=== PATIENT | male | born 1955 | race Caucasian/White ===

== ENCOUNTER 2017-05-16 22:03 | Inpatient (IN) | payer MEDICARE, OTHER ==
[~2017-05-16] VITALS: Ht 177.8 cm; Wt 93.4 kg
[2017-05-16] MEDS: IPRATROPIUM/ALBUTEROL 0.5-3(2.5)MG/3ML NEB HHN SCH (05:00)
[~2017-05-16 22:03] MED LIST: ALBU2.5V13 NEB; ALBU2SYR PO; ASCO-316 PO; ASPI-986 PO; BUDE6HFA INH; CLOP75TA16 PO; CLOP75TA33 PO; IPRA4AER IH; LISI10TA5 PO; LISI2.5T47 PO; LORA10TA7 PO; MONT10TA21 PO; NASA NS; ZOLP5TAB8 PO
[2017-05-16] MEDS ORDERED: IPRATROPIUM BROMIDE (0.02%) 0.5MG/2.5ML NEB HHN STA (22:10)
[2017-05-16] MEDS ORDERED: ALBUTEROL (0.083%) 2.5MG/3ML NEB HHN STA (22:10)
[2017-05-16] MEDS ORDERED: METHYLPREDNISOLONE SOD SUCC 125 MG/2 ML VIAL IV STA (22:10)
[2017-05-16] MEDS ORDERED: MAGNESIUM 2 G PREMIX 50 ML IV ONE (22:15)
[2017-05-16 22:56] LABS: TROPONIN I < 0.02 ng/mL (0.00-0.04)
[2017-05-16 22:58] LABS: HEMATOCRIT. 48.6 % (42.0-52.0); HEMOGLOBIN. 15.8 g/dL (14.0-18.0); MEAN CORPUSCULAR HEMOGLOBIN 28.3 pg (28.0-32.0); MEAN CORPUSCULAR VOLUME 87.3 fL (80.0-94.0); MEAN PLATELET VOLUME 8.7 fl (7.4-10.4); PLATELET 188 x1000/uL (130-400); RED BLOOD CELL COUNT 5.57 mill/uL (4.7-6.1); RED CELL DISTRIBUTION WIDTH 14.1 % (11.6-14.6)
[2017-05-16 23:00] LABS: CHLORIDE 97 mEq/L (98-107)
[2017-05-16] MEDS ORDERED: LEVOFLOXACIN 750MG PREMIX 150 ML IV ONE (23:00)
[2017-05-16 23:04] LABS: CARBON DIOXIDE 39 mEq/L (21-32)
[2017-05-16 23:04] LABS: INR 1.1; PROTHROMBIN TIME 11.4 sec (9.4-11.6)
[2017-05-16 23:12] LABS: PLATELET ESTIMATE NORMAL
[2017-05-16] MEDS ORDERED: MAGNESIUM/ALUMINUM HYDROXIDE/SIMETHICONE 30ML UDC PO PRN (23:15)
[2017-05-16] MEDS ORDERED: IPRATROPIUM/ALBUTEROL 0.5-3(2.5)MG/3ML NEB INH PRN (23:15)
[2017-05-16] MEDS ORDERED: ACETAMINOPHEN 325MG TABLET PO PRN (23:15)
[2017-05-16] MEDS ORDERED: ONDANSETRON HCL 4MG/2ML VIAL IV PRN (23:15)
[2017-05-16] MEDS ORDERED: DOCUSATE SODIUM 100MG CAPSULE PO PRN (23:15)
[2017-05-16] MEDS ORDERED: NA PHOS,M-B/NA PHOS,DI-BA ENEMA 118ML PR PRN (23:15)
[2017-05-16] MEDS ORDERED: ZOLPIDEM TARTRATE 5MG TABLET PO PRN (23:15)
[2017-05-16] MEDS ORDERED: TRAMADOL 50MG TABLET PO PRN (23:15)
[2017-05-16 23:57] LABS: ETHANOL BLOOD < 10 mg/dL; HDL CHOLESTEROL 75 mg/dL (40-59); LDL CHOLESTEROL 87 mg/dL (5-100)
[2017-05-17] VITALS (10 sets, daily range): BP systolic 145–169; BP diastolic 75–105
[2017-05-17] MEDS ORDERED: ALBUTEROL (0.083%) 2.5MG/3ML NEB HHN ONE (00:15)
[2017-05-17] MEDS ORDERED: SODIUM CHLORIDE 0.9% 1,000 ML IV ONE (00:15)
[2017-05-17] MEDS ORDERED: DILTIAZEM HCL 5MG/ML 5ML VIAL IV ONE (00:45)
[2017-05-17] MEDS ORDERED: DILTIAZEM HCL 120MG CAPSULE CD 24HR PO ONE (02:00)
[2017-05-17 04:21] LABS: CLARITY URINE CLEAR (CLEAR); COLOR URINE YELLOW (YELLOW); KETONES URINE 1+ (NEGATIVE); LEUKOCYTE ESTERASE URINE NEGATIVE (NEGATIVE); NITRITE URINE NEGATIVE (NEGATIVE); OCCULT BLOOD URINE NEGATIVE (NEGATIVE); PROTEIN URINE 2+ (NEGATIVE); SPECIFIC GRAVITY URINE 1.027 (1.005-1.030)
[2017-05-17 04:43] LABS: *AMPHETAMINES SCREEN URINE NEGATIVE (NEGATIVE); *BARBITURATES SCREEN URINE NEGATIVE (NEGATIVE); *BENZODIAZEPINES SCREEN URINE NEGATIVE (NEGATIVE); *COCAINE SCREEN URINE NEGATIVE (NEGATIVE); CANNABINOID URINE SCREEN PRESUMTIVE POSITIVE (NEGATIVE); METHADONE URINE SCREEN NEGATIVE (NEGATIVE); OPIATES URINE SCREEN PRESUMTIVE POSITIVE (NEGATIVE); PHENCYCLIDINE URINE SCREEN NEGATIVE (NEGATIVE)
[2017-05-17] MEDS: DIPHENHYDRAMINE 50MG/ML VIAL IV PRN ×2 (06:38→22:24)
[2017-05-17] MEDS: LORAZEPAM 0.5MG TABLET PO PRN ×2 (06:39→22:24)
[2017-05-17] MEDS: METHYLPREDNISOLONE SOD SUCC 125 MG/2 ML VIAL IV SCH ×2 (06:39→13:29)
[2017-05-17] MEDS ORDERED: POTASSIUM CHLORIDE INJ 20 MEQ in DEXT 5% WATER 100 ML IV ONE (07:00)
[2017-05-17 07:42] LABS: CREATINE KINASE MB FRACTION 5.7 ng/mL (0.5-3.6)
[2017-05-17] MEDS ORDERED: ENOXAPARIN 40MG/0.4ML SYR SUBCUT SCH (08:00)
[2017-05-17 09:05] LABS: TROPONIN I 0.48 ng/mL (0.00-0.04)
[2017-05-17] MEDS: CLOPIDOGREL 75MG TABLET PO SCH (09:13)
[2017-05-17] MEDS: FAMOTIDINE 20MG/2ML VIAL IV SCH ×2 (09:13→21:03)
[2017-05-17] MEDS: GUAIFENESIN/DM 600MG/30MG ER TAB 12HR PO SCH ×2 (09:13→21:03)
[2017-05-17] MEDS: ASPIRIN 325MG EC TABLET PO SCH (09:13)
[2017-05-17] MEDS: LISINOPRIL 20MG TABLET PO SCH ×2 (09:13→21:04)
[2017-05-17] MEDS: IPRATROPIUM/ALBUTEROL 0.5-3(2.5)MG/3ML NEB HHN SCH ×2 (09:48→20:57)
[2017-05-17] MEDS: LEVOFLOXACIN 500MG PREMIX 100 ML IV SCH (10:10)
[2017-05-17] MEDS: METHYLPREDNISOLONE SOD SUCC 40 MG/ML VIAL IV SCH ×2 (14:00→21:03)
[2017-05-17 14:50] LABS: BG BASE EXCESS 11.4 mmol/L (-2.0-2.0); BG CARBOXYHEMOGLOBIN 1.1 % (0.5-1.5); BG DEOXYHEMOGLOBIN 4.6 % (0.0-5.0); BG FRACTION INSPIRED OXYGEN 34; BG HCO3 ACT 40.9 mmol/L (22.0-26.0); BG METHEMOGLOBIN 0.3 % (0.0-1.5); BG OXYGEN SATURATION 95.3 % (92.0-98.5); BG PH 7.349 (7.350-7.450); BG PO2 76.4 mmHg (75.0-100.0); BG SAMPLE SITE RIGHT RADIAL; BG TOTAL HEMOGLOBIN 15.5 g/dL (12.0-18.0); BG VENT MODE NASAL CANNULA
[2017-05-17] MEDS: GUAIFENESIN 200MG/10ML SUGAR FREE UDC PO SCH ×3 (14:54→21:03)
[2017-05-17] MEDS: CLONIDINE 0.1MG TABLET PO PRN (15:55)
[2017-05-17] MEDS ORDERED: SODIUM CHLORIDE 10% FOR INH 15ML VIAL NEB INH NR (16:00)
[2017-05-17 16:02] LABS: T4 FREE 1.25 ng/dL (0.76-1.46)
[2017-05-17 16:43] LABS: CREATINE KINASE MB FRACTION 5.6 ng/mL (0.5-3.6)
[2017-05-17 16:50] LABS: TROPONIN I 0.51 ng/mL (0.00-0.04)
[2017-05-17] MEDS ORDERED: VANCOMYCIN 2,000 MG in DEXT 5% WATER 500 ML IV NR (18:00)
[2017-05-17] MEDS: BUDESONIDE 0.5MG/2ML NEB HHN SCH (20:56)
[2017-05-17] MEDS: TRAZODONE HCL 50MG TABLET PO PRN (21:04)
[2017-05-18] VITALS (12 sets, daily range): BP systolic 132–187; BP diastolic 70–116
[2017-05-18] MEDS: ACETYLCYSTEINE 200MG/ML 20% VIAL 4ML INH SCH ×2 (00:53→08:00)
[2017-05-18] MEDS: IPRATROPIUM/ALBUTEROL 0.5-3(2.5)MG/3ML NEB HHN SCH ×5 (00:53→16:24)
[2017-05-18] MEDS: VANCOMYCIN 1500MG in DEXTROSE 5% WATER 250ML IV SCH ×2 (03:01→17:15)
[2017-05-18] MEDS: GUAIFENESIN 200MG/10ML SUGAR FREE UDC PO SCH ×6 (03:02→21:02)
[2017-05-18] MEDS: METHYLPREDNISOLONE SOD SUCC 40 MG/ML VIAL IV SCH ×3 (05:05→21:02)
[2017-05-18] MEDS: LORAZEPAM 0.5MG TABLET PO PRN ×3 (06:28→22:58)
[2017-05-18 07:27] LABS: HEMOGLOBIN. 15.2 g/dL (14.0-18.0); MEAN CORPUSCULAR HEMOGLOBIN 28.4 pg (28.0-32.0); MEAN CORPUSCULAR VOLUME 87.7 fL (80.0-94.0); MEAN PLATELET VOLUME 9.1 fl (7.4-10.4); PLATELET 167 x1000/uL (130-400); RED BLOOD CELL COUNT 5.36 mill/uL (4.7-6.1); RED CELL DISTRIBUTION WIDTH 14.2 % (11.6-14.6)
[2017-05-18 07:37] LABS: CHLORIDE 96 mEq/L (98-107); CREATINE KINASE 57 IU/L (39-308)
[2017-05-18 07:39] LABS: CREATINE KINASE MB FRACTION 5.5 ng/mL (0.5-3.6); TROPONIN I 0.36 ng/mL (0.00-0.04)
[2017-05-18] MEDS: BUDESONIDE 0.5MG/2ML NEB HHN SCH ×2 (08:00→16:23)
[2017-05-18] MEDS ORDERED: DILTIAZEM HCL 5MG/ML 5ML VIAL IV SCH (08:45)
[2017-05-18] MEDS ORDERED: ENOXAPARIN 100MG/ML SYR SUBCUT SCH (09:15)
[2017-05-18] MEDS: LEVOFLOXACIN 500MG PREMIX 100 ML IV SCH (09:44)
[2017-05-18] MEDS: ASPIRIN 325MG EC TABLET PO SCH (09:45)
[2017-05-18] MEDS: CLOPIDOGREL 75MG TABLET PO SCH (09:45)
[2017-05-18] MEDS: FAMOTIDINE 20MG/2ML VIAL IV SCH ×2 (09:45→21:02)
[2017-05-18] MEDS: GUAIFENESIN/DM 600MG/30MG ER TAB 12HR PO SCH ×2 (09:45→21:02)
[2017-05-18 09:46] LABS: CARBON DIOXIDE 41 mEq/L (21-32)
[2017-05-18] MEDS: LISINOPRIL 20MG TABLET PO SCH ×2 (09:49→21:03)
[2017-05-18] MEDS ORDERED: DILTIAZEM HCL 125 MG in DEXT 5% WATER 100 ML IV SCH (10:00)
[2017-05-18] MEDS ORDERED: DILTIAZEM HCL 60MG TABLET PO SCH (12:00)
[2017-05-18] MEDS: DILTIAZEM HCL 60MG TABLET PO SCH ×3 (12:20→23:01)
[2017-05-18 12:47] LABS: PLATELET ESTIMATE NORMAL
[2017-05-18] MEDS: CLONIDINE 0.1MG TABLET PO PRN (16:27)
[2017-05-18] MEDS: RIVAROXABAN 20 MG TABLET PO SCH (17:15)
[2017-05-18] MEDS: DIGOXIN 250MCG TABLET PO SCH (17:17)
[2017-05-18] MEDS: ALBUTEROL (0.083%) 2.5MG/3ML NEB HHN SCH (20:18)
[2017-05-18] MEDS: TRAZODONE HCL 50MG TABLET PO PRN (21:02)
[2017-05-18] MEDS: DIPHENHYDRAMINE 50MG/ML VIAL IV PRN (22:58)
[2017-05-19] VITALS (12 sets, daily range): BP systolic 132–159; BP diastolic 69–105
[2017-05-19] MEDS: ALBUTEROL (0.083%) 2.5MG/3ML NEB HHN SCH ×5 (00:26→21:08)
[2017-05-19] MEDS: ACETYLCYSTEINE 200MG/ML 20% VIAL 4ML INH SCH ×3 (00:27→14:24)
[2017-05-19] MEDS: GUAIFENESIN 200MG/10ML SUGAR FREE UDC PO SCH ×4 (02:54→13:25)
[2017-05-19] MEDS: CLONIDINE 0.1MG TABLET PO PRN ×2 (03:00→22:53)
[2017-05-19] MEDS: VANCOMYCIN 1500MG in DEXTROSE 5% WATER 250ML IV SCH ×3 (03:01→21:21)
[2017-05-19] MEDS: DILTIAZEM HCL 60MG TABLET PO SCH ×2 (05:09→11:23)
[2017-05-19] MEDS: METHYLPREDNISOLONE SOD SUCC 40 MG/ML VIAL IV SCH ×3 (05:09→21:21)
[2017-05-19] MEDS: BUDESONIDE 0.5MG/2ML NEB HHN SCH ×2 (08:20→21:08)
[2017-05-19] MEDS: ASPIRIN 325MG EC TABLET PO SCH (08:39)
[2017-05-19] MEDS: GUAIFENESIN/DM 600MG/30MG ER TAB 12HR PO SCH ×2 (08:39→20:08)
[2017-05-19] MEDS: FAMOTIDINE 20MG/2ML VIAL IV SCH ×2 (08:39→20:08)
[2017-05-19] MEDS: LISINOPRIL 20MG TABLET PO SCH ×2 (08:39→20:08)
[2017-05-19] MEDS: LEVOFLOXACIN 500MG PREMIX 100 ML IV SCH (08:59)
[2017-05-19] MEDS: DIGOXIN 250MCG TABLET PO SCH (17:48)
[2017-05-19] MEDS: DILTIAZEM HCL 90MG TABLET PO SCH ×2 (17:48→23:43)
[2017-05-19] MEDS: FLUNISOLIDE XX SCH (17:48)
[2017-05-19] MEDS: RIVAROXABAN 20 MG TABLET PO SCH (17:48)
[2017-05-19] MEDS: ALBUTEROL (0.083%) 2.5MG/3ML NEB HHN PRN (17:59)
[2017-05-19] MEDS: ATORVASTATIN CALCIUM 20MG TABLET PO SCH (20:08)
[2017-05-19] MEDS: DIPHENHYDRAMINE 50MG/ML VIAL IV PRN (21:31)
[2017-05-19] MEDS: LORAZEPAM 0.5MG TABLET PO PRN (21:31)
[2017-05-19] MEDS: GUAIFENESIN 200MG/10ML SUGAR FREE UDC PO PRN (22:08)
[2017-05-19] MEDS: TRAZODONE HCL 50MG TABLET PO PRN (23:43)
[2017-05-20] VITALS (13 sets, daily range): BP systolic 97–176; BP diastolic 41–110
[2017-05-20] MEDS: ACETYLCYSTEINE 200MG/ML 20% VIAL 4ML INH SCH ×3 (00:19→16:22)
[2017-05-20] MEDS: ALBUTEROL (0.083%) 2.5MG/3ML NEB HHN PRN (00:19)
[2017-05-20] MEDS: ALBUTEROL (0.083%) 2.5MG/3ML NEB HHN SCH ×5 (04:02→20:08)
[2017-05-20] MEDS: METHYLPREDNISOLONE SOD SUCC 40 MG/ML VIAL IV SCH (05:23)
[2017-05-20] MEDS: DILTIAZEM HCL 90MG TABLET PO SCH ×4 (05:24→23:11)
[2017-05-20] MEDS: VANCOMYCIN 1500MG in DEXTROSE 5% WATER 250ML IV SCH ×2 (05:24→14:19)
[2017-05-20 06:25] LABS: HEMATOCRIT. 46.6 % (42.0-52.0); HEMOGLOBIN. 14.7 g/dL (14.0-18.0); MEAN CORPUSCULAR HEMOGLOBIN 27.8 pg (28.0-32.0); MEAN CORPUSCULAR VOLUME 88.3 fL (80.0-94.0); MEAN PLATELET VOLUME 9.2 fl (7.4-10.4); PLATELET 154 x1000/uL (130-400); RED BLOOD CELL COUNT 5.28 mill/uL (4.7-6.1); RED CELL DISTRIBUTION WIDTH 13.7 % (11.6-14.6)
[2017-05-20 06:50] LABS: CHLORIDE 95 mEq/L (98-107); VANCOMYCIN TROUGH 18.9 ug/mL (5.0-10.0)
[2017-05-20 07:39] LABS: PLATELET ESTIMATE NORMAL
[2017-05-20] MEDS: BUDESONIDE 0.5MG/2ML NEB HHN SCH ×2 (07:43→20:07)
[2017-05-20] MEDS: LISINOPRIL 20MG TABLET PO SCH ×2 (09:02→20:13)
[2017-05-20] MEDS: ASPIRIN 81MG EC TABLET PO SCH (09:02)
[2017-05-20] MEDS: FAMOTIDINE 20MG/2ML VIAL IV SCH ×2 (09:02→20:13)
[2017-05-20] MEDS: FLUNISOLIDE XX SCH ×2 (09:02→17:21)
[2017-05-20] MEDS: GUAIFENESIN/DM 600MG/30MG ER TAB 12HR PO SCH ×2 (09:02→20:13)
[2017-05-20 09:03] LABS: CARBON DIOXIDE 47 mEq/L (21-32)
[2017-05-20] MEDS ORDERED: LEVOFLOXACIN 750MG PREMIX 150 ML IV SCH (11:00)
[2017-05-20] MEDS ORDERED: SODIUM BICARBONATE 4% (2.4MEQ) 5ML VIAL IV ONE (13:53)
[2017-05-20] MEDS ORDERED: LIDOCAINE HCL 1% 20ML VIAL (Pyxis) INJ ONE (13:53)
[2017-05-20] MEDS ORDERED: CEFTRIAXONE 1 G PREMIX 50 ML IV SCH (15:00)
[2017-05-20] MEDS ORDERED: PREDNISONE 20MG TABLET PO SCH (17:00)
[2017-05-20] MEDS ORDERED: CEFTRIAXONE 2 G in DEXTROSE 5% WATER 50 ML IV SCH (17:00)
[2017-05-20] MEDS ORDERED: CEFTRIAXONE 2 G PREMIX 50 ML IV SCH (17:00)
[2017-05-20] MEDS: RIVAROXABAN 20 MG TABLET PO SCH (17:19)
[2017-05-20] MEDS: DIGOXIN 250MCG TABLET PO SCH (17:19)
[2017-05-20 19:16] LABS: D-DIMER < 0.19 mg/L FEU (<0.50); INR 1.5; PARTIAL THROMBOPLASTIN TIME 35.4 sec (23.4-31.0)
[2017-05-20] MEDS: ATORVASTATIN CALCIUM 20MG TABLET PO SCH (20:13)
[2017-05-20] MEDS: DIPHENHYDRAMINE 50MG/ML VIAL IV PRN (23:10)
[2017-05-20] MEDS: GUAIFENESIN 200MG/10ML SUGAR FREE UDC PO PRN (23:10)
[2017-05-20] MEDS: LORAZEPAM 0.5MG TABLET PO PRN (23:11)
[2017-05-20] MEDS: TRAZODONE HCL 50MG TABLET PO PRN (23:11)
[2017-05-20] MEDS: CLONIDINE 0.1MG TABLET PO PRN (23:13)
[2017-05-21] VITALS (61 sets, daily range): BP systolic 5–228; BP diastolic 18–228
[2017-05-21] MEDS: ALBUTEROL (0.083%) 2.5MG/3ML NEB HHN SCH ×3 (04:09→19:39)
[2017-05-21] MEDS: DIPHENHYDRAMINE 50MG/ML VIAL IV PRN (04:23)
[2017-05-21] MEDS: LORAZEPAM 0.5MG TABLET PO PRN (04:23)
[2017-05-21] MEDS: GUAIFENESIN 200MG/10ML SUGAR FREE UDC PO PRN (04:23)
[2017-05-21] MEDS: CLONIDINE 0.1MG TABLET PO PRN (04:24)
[2017-05-21 05:49] LABS: BG BASE EXCESS 24.5 mmol/L (-2.0-2.0); BG CARBOXYHEMOGLOBIN 1.2 % (0.5-1.5); BG DEOXYHEMOGLOBIN 12.9 % (0.0-5.0); BG FRACTION INSPIRED OXYGEN 50; BG HCO3 ACT 60.2 mmol/L (22.0-26.0); BG METHEMOGLOBIN 0.4 % (0.0-1.5); BG OXYGEN SATURATION 86.9 % (92.0-98.5); BG OXYHEMOGLOBIN 85.5 % (94.0-97.0); BG PH 7.267 (7.350-7.450); BG PO2 58.2 mmHg (75.0-100.0); BG SAMPLE SITE LEFT RADIAL; BG TOTAL HEMOGLOBIN 15.6 g/dL (12.0-18.0); BG VENT MODE MASK - VENTI
[2017-05-21] MEDS: DILTIAZEM HCL 90MG TABLET PO SCH ×3 (06:18→18:00)
[2017-05-21 07:25] LABS: HEMATOCRIT. 48.2 % (42.0-52.0); HEMOGLOBIN. 14.7 g/dL (14.0-18.0); MEAN CORPUSCULAR HEMOGLOBIN 27.2 pg (28.0-32.0); MEAN CORPUSCULAR VOLUME 89.1 fL (80.0-94.0); MEAN PLATELET VOLUME 9.2 fl (7.4-10.4); PLATELET 164 x1000/uL (130-400); RED CELL DISTRIBUTION WIDTH 13.9 % (11.6-14.6)
[2017-05-21] MEDS: LISINOPRIL 20MG TABLET PO SCH ×2 (07:59→21:00)
[2017-05-21 08:13] LABS: BG BASE EXCESS 25.2 mmol/L (-2.0-2.0); BG BILEVEL POS AIRWAY PRESSURE 18/5; BG CARBOXYHEMOGLOBIN 0.8 % (0.5-1.5); BG DEOXYHEMOGLOBIN 1.1 % (0.0-5.0); BG HCO3 ACT 63.1 mmol/L (22.0-26.0); BG METHEMOGLOBIN 0.5 % (0.0-1.5); BG OXYGEN SATURATION 98.9 % (92.0-98.5); BG OXYHEMOGLOBIN 97.6 % (94.0-97.0); BG PCO2 179.1 mmHg (35.0-45.0); BG PH 7.165 (7.350-7.450); BG SAMPLE SITE RIGHT RADIAL; BG TOTAL HEMOGLOBIN 14.6 g/dL (12.0-18.0); BG VENT MODE MASK - BIPAP; BG VENT RATE 18 set
[2017-05-21] MEDS: PROPOFOL 10MG/ML 100ML 100 ML IV PRN ×3 (08:30→18:06)
[2017-05-21 08:45] LABS: CHLORIDE 92 mEq/L (98-107)
[2017-05-21] MEDS: FLUNISOLIDE XX SCH ×2 (09:00→17:00)
[2017-05-21] MEDS ORDERED: LEVOFLOXACIN 500MG PREMIX 100 ML IV SCH ×2 (09:00→15:00)
[2017-05-21] MEDS: ASPIRIN 81MG EC TABLET PO SCH (09:00)
[2017-05-21] MEDS: GUAIFENESIN/DM 600MG/30MG ER TAB 12HR PO SCH ×2 (09:00→22:01)
[2017-05-21] MEDS ORDERED: ALBUMIN HUMAN 25GM/100ML (25%) IV NR (09:56)
[2017-05-21] MEDS ORDERED: SODIUM CHLORIDE 0.9% 1,000 ML IV SCH (10:00)
[2017-05-21] MEDS ORDERED: MEPERIDINE HCL/PF 25MG/ML CPJ IV PRN (10:00)
[2017-05-21 10:02] LABS: BG BASE EXCESS 13.1 mmol/L (-2.0-2.0); BG CARBOXYHEMOGLOBIN 0.5 % (0.5-1.5); BG DEOXYHEMOGLOBIN 1.2 % (0.0-5.0); BG HCO3 ACT 38.3 mmol/L (22.0-26.0); BG METHEMOGLOBIN 0.3 % (0.0-1.5); BG OXYGEN SATURATION 98.8 % (92.0-98.5); BG PCO2 49.6 mmHg (35.0-45.0); BG PH 7.506 (7.350-7.450); BG PO2 127.7 mmHg (75.0-100.0); BG SAMPLE SITE RIGHT RADIAL; BG TIDAL VOLUME(mL) 550 mL; BG TOTAL HEMOGLOBIN 15.1 g/dL (12.0-18.0); BG VENT MODE VENT - A/C; BG VENT RATE 18 set
[2017-05-21] MEDS ORDERED: PHENYLEPHRINE 10 MG in DEXT 5% WATER 249 ML IV PRN (10:30)
[2017-05-21] MEDS: NOREPINEPHRINE 32 MG in DEXT 5% WATER 468 ML IV PRN (10:30)
[2017-05-21] MEDS ORDERED: DOPAMINE 400MG IN DEXT 5% 250ML PREMIX IV ONE (11:23)
[2017-05-21] MEDS ORDERED: EPINEPHRINE 0.1MG/ML (1:10,000) 10ML SYR ONE (11:23)
[2017-05-21] MEDS ORDERED: AMIODARONE HCL 50MG/ML 3ML VIAL IV ONE (11:23)
[2017-05-21 11:29] LABS: HEMATOCRIT. 44.3 % (42.0-52.0); HEMOGLOBIN. 13.3 g/dL (14.0-18.0); MEAN CORPUSCULAR HEMOGLOBIN 26.9 pg (28.0-32.0); MEAN CORPUSCULAR VOLUME 89.4 fL (80.0-94.0); PLATELET 222 x1000/uL (130-400); RED BLOOD CELL COUNT 4.95 mill/uL (4.7-6.1); RED CELL DISTRIBUTION WIDTH 14.5 % (11.6-14.6)
[2017-05-21 11:37] LABS: INR 1.3; PARTIAL THROMBOPLASTIN TIME 25.6 sec (23.4-31.0); PROTHROMBIN TIME 13.3 sec (9.4-11.6)
[2017-05-21 12:09] LABS: CARBON DIOXIDE 44 mEq/L (21-32)
[2017-05-21 12:55] LABS: PLATELET ESTIMATE NORMAL
[2017-05-21] MEDS: FENTANYL CITRATE/PF 500 MCG in SODIUM CHLORIDE 0.9% 40 ML IV PRN ×3 (13:00→22:07)
[2017-05-21 13:10] LABS: AMYLASE 38 IU/L (25-115); CHLORIDE 91 mEq/L (98-107); CREATINE KINASE 34 IU/L (39-308); HDL CHOLESTEROL 62 mg/dL (40-59); LDL CHOLESTEROL 77 mg/dL (5-100); PHOSPHORUS 6.1 mg/dL (2.5-4.9); TROPONIN I 0.14 ng/mL (0.00-0.04)
[2017-05-21 13:13] LABS: BG BASE EXCESS 15.7 mmol/L (-2.0-2.0); BG CARBOXYHEMOGLOBIN 0.3 % (0.5-1.5); BG DEOXYHEMOGLOBIN 0.7 % (0.0-5.0); BG HCO3 ACT 41.8 mmol/L (22.0-26.0); BG METHEMOGLOBIN 0.6 % (0.0-1.5); BG OXYGEN SATURATION 99.3 % (92.0-98.5); BG OXYHEMOGLOBIN 98.4 % (94.0-97.0); BG PCO2 55.3 mmHg (35.0-45.0); BG PH 7.496 (7.350-7.450); BG PO2 268.9 mmHg (75.0-100.0); BG SAMPLE SITE A-LINE; BG TIDAL VOLUME(mL) 550 mL; BG TOTAL HEMOGLOBIN 14.8 g/dL (12.0-18.0); BG VENT MODE VENT - A/C; BG VENT RATE 18 set
[2017-05-21 13:26] LABS: CARBON DIOXIDE 40 mEq/L (21-32)
[2017-05-21] MEDS: BUDESONIDE 0.5MG/2ML NEB HHN SCH ×2 (14:03→19:40)
[2017-05-21] MEDS: ACETYLCYSTEINE 200MG/ML 20% VIAL 4ML INH SCH (14:03)
[2017-05-21] MEDS: FAMOTIDINE 20MG/2ML VIAL IV SCH ×2 (15:05→22:01)
[2017-05-21] MEDS: PANTOPRAZOLE SODIUM 40 MG/VIAL IV SCH (15:05)
[2017-05-21] MEDS: MIDAZOLAM HCL 50 MG in DEXTROSE 5% WATER 40 ML IV PRN (15:12)
[2017-05-21 15:39] LABS: PLATELET ESTIMATE NORMAL
[2017-05-21] MEDS ORDERED: DEXTROSE 50% WATER 50ML SYRINGE IV PRN (16:15)
[2017-05-21] MEDS: BLOOD SUGAR DIAGNOSTIC STRIP TEST SCH (18:00)
[2017-05-21] MEDS: DIGOXIN 250MCG TABLET PO SCH (18:00)
[2017-05-21] MEDS: CEFEPIME 2,000 MG in DEXT 5% WATER 100 ML IV SCH (18:08)
[2017-05-21] MEDS: RIVAROXABAN 20 MG TABLET PO SCH (18:16)
[2017-05-21] MEDS: INSULIN LISPRO 100 UNITS/ML SUBCUT SCH (18:24)
[2017-05-21 21:11] LABS: TROPONIN I 0.22 ng/mL (0.00-0.04)
[2017-05-21 21:13] LABS: CREATINE KINASE MB FRACTION 1.4 ng/mL (0.5-3.6)
[2017-05-21] MEDS ORDERED: SODIUM PHOS,M-BASIC-D-BASIC 10 MM in DEXT 5% WATER 246.6667 ML IV PRN (21:30)
[2017-05-21] MEDS ORDERED: KCL 20MEQ/100ML PREMIX 250 ML IV PRN ×2 (21:30→22:00)
[2017-05-21] MEDS ORDERED: KCL 20MEQ/100ML PREMIX 100 ML IV PRN ×4 (21:30→22:00)
[2017-05-21] MEDS ORDERED: CALCIUM GLUCONATE 1,000 MG in DEXT 5% WATER 90 ML IV PRN ×2 (21:30→22:00)
[2017-05-21] MEDS ORDERED: MAGNESIUM 2 G PREMIX 50 ML IV PRN (21:30)
[2017-05-21] MEDS: ATORVASTATIN CALCIUM 20MG TABLET PO SCH (22:01)
[2017-05-21] MEDS ORDERED: POTASSIUM CHLORIDE INJ 40 MEQ in DEXT 5% WATER 250 ML IV NR (23:30)
[2017-05-21 23:40] LABS: HEMATOCRIT. 44.3 % (42.0-52.0); HEMOGLOBIN. 13.8 g/dL (14.0-18.0); MEAN CORPUSCULAR HEMOGLOBIN 27.4 pg (28.0-32.0); MEAN PLATELET VOLUME 9.4 fl (7.4-10.4); PLATELET 204 x1000/uL (130-400); RED BLOOD CELL COUNT 5.03 mill/uL (4.7-6.1); RED CELL DISTRIBUTION WIDTH 13.7 % (11.6-14.6)
[2017-05-21 23:47] LABS: INR 1.3; PROTHROMBIN TIME 13.4 sec (9.4-11.6)
[2017-05-22] VITALS (82 sets, daily range): BP systolic 50–160; BP diastolic 34–110
[2017-05-22] MEDS: INSULIN LISPRO 100 UNITS/ML SUBCUT SCH ×4 (00:12→17:50)
[2017-05-22] MEDS: BLOOD SUGAR DIAGNOSTIC STRIP TEST SCH ×4 (00:14→17:50)
[2017-05-22 01:14] LABS: PHOSPHORUS 1.4 mg/dL (2.5-4.9)
[2017-05-22] MEDS: PROPOFOL 10MG/ML 100ML 100 ML IV PRN (01:14)
[2017-05-22] MEDS: ALBUTEROL (0.083%) 2.5MG/3ML NEB HHN SCH ×4 (01:49→20:13)
[2017-05-22] MEDS: MIDAZOLAM HCL 50 MG in DEXTROSE 5% WATER 40 ML IV PRN ×2 (01:59→17:14)
[2017-05-22] MEDS: FENTANYL CITRATE/PF 500 MCG in SODIUM CHLORIDE 0.9% 40 ML IV PRN ×3 (03:05→19:34)
[2017-05-22 03:22] LABS: PLATELET ESTIMATE NORMAL
[2017-05-22] MEDS ORDERED: DEXT IV NR (03:30)
[2017-05-22] MEDS ORDERED: WATER IV NR (03:30)
[2017-05-22] MEDS ORDERED: SODIUM PHOS M BASIC D BASIC IV NR (03:30)
[2017-05-22] MEDS: DILTIAZEM HCL 90MG TABLET PO SCH ×2 (06:00)
[2017-05-22] MEDS: CEFEPIME 2,000 MG in DEXT 5% WATER 100 ML IV SCH ×2 (06:23→17:54)
[2017-05-22 06:38] LABS: CREATINE KINASE MB FRACTION 1.6 ng/mL (0.5-3.6); TROPONIN I 0.18 ng/mL (0.00-0.04)
[2017-05-22] MEDS: ACETYLCYSTEINE 200MG/ML 20% VIAL 4ML INH SCH ×2 (08:40→14:45)
[2017-05-22] MEDS: BUDESONIDE 0.5MG/2ML NEB HHN SCH ×2 (08:40→20:13)
[2017-05-22 08:55] LABS: BG BASE EXCESS 8.8 mmol/L (-2.0-2.0); BG CARBOXYHEMOGLOBIN 0.5 % (0.5-1.5); BG DEOXYHEMOGLOBIN 0.5 % (0.0-5.0); BG FRACTION INSPIRED OXYGEN 45; BG HCO3 ACT 31.8 mmol/L (22.0-26.0); BG OXYGEN SATURATION 99.5 % (92.0-98.5); BG PCO2 38.1 mmHg (35.0-45.0); BG PO2 197.1 mmHg (75.0-100.0); BG SAMPLE SITE A-LINE; BG TIDAL VOLUME(mL) 550 mL; BG TOTAL HEMOGLOBIN 14.7 g/dL (12.0-18.0); BG VENT MODE VENT - A/C; BG VENT RATE 18 set
[2017-05-22] MEDS: FLUNISOLIDE XX SCH (09:00)
[2017-05-22] MEDS: LISINOPRIL 20MG TABLET PO SCH ×2 (09:00→21:00)
[2017-05-22] MEDS: PANTOPRAZOLE SODIUM 40 MG/VIAL IV SCH (09:16)
[2017-05-22] MEDS: SODIUM CHLORIDE 0.9% 1,000 ML IV SCH ×2 (09:18→21:12)
[2017-05-22] MEDS ORDERED: CLONIDINE 0.1MG TABLET NG PRN (09:44)
[2017-05-22] MEDS ORDERED: PROPOFOL 10MG/ML 100ML 100 ML IV PRN ×4 (10:00→21:31)
[2017-05-22] MEDS ORDERED: ACETAMINOPHEN 650MG/20.3ML UDC NG PRN (10:00)
[2017-05-22] MEDS ORDERED: POTASSIUM CHLORIDE INJ 40 MEQ in DEXT 5% WATER 250 ML IV NR (10:00)
[2017-05-22] MEDS: ASPIRIN 81MG TABLET GT SCH (10:11)
[2017-05-22] MEDS: GUAIFENESIN-DM 200MG-20MG/10ML UDC GT SCH ×2 (11:47→17:54)
[2017-05-22 12:33] LABS: HEMATOCRIT. 43.5 % (42.0-52.0); HEMOGLOBIN. 13.6 g/dL (14.0-18.0); MEAN CORPUSCULAR VOLUME 86.6 fL (80.0-94.0); MEAN PLATELET VOLUME 9.1 fl (7.4-10.4); PLATELET 193 x1000/uL (130-400); RED BLOOD CELL COUNT 5.02 mill/uL (4.7-6.1); RED CELL DISTRIBUTION WIDTH 13.7 % (11.6-14.6)
[2017-05-22 12:38] LABS: INR 1.3; PROTHROMBIN TIME 13.4 sec (9.4-11.6)
[2017-05-22 12:48] LABS: PHOSPHORUS 2.1 mg/dL (2.5-4.9)
[2017-05-22 13:50] LABS: PLATELET ESTIMATE NORMAL
[2017-05-22] MEDS ORDERED: MAGNESIUM 2 G PREMIX 50 ML IV NR (14:00)
[2017-05-22] MEDS: NOREPINEPHRINE 32 MG in DEXT 5% WATER 468 ML IV PRN (14:54)
[2017-05-22] MEDS: RIVAROXABAN 20 MG TABLET PO SCH (17:54)
[2017-05-22 20:24] LABS: CHLORIDE 96 mEq/L (98-107); HEMOGLOBIN. 14.3 g/dL (14.0-18.0); MEAN CORPUSCULAR HEMOGLOBIN 27.4 pg (28.0-32.0); MEAN CORPUSCULAR VOLUME 86.3 fL (80.0-94.0); MEAN PLATELET VOLUME 9.1 fl (7.4-10.4); PLATELET 177 x1000/uL (130-400); RED BLOOD CELL COUNT 5.21 mill/uL (4.7-6.1)
[2017-05-22 20:27] LABS: INR 1.1; PARTIAL THROMBOPLASTIN TIME 29.9 sec (23.4-31.0); PROTHROMBIN TIME 11.7 sec (9.4-11.6)
[2017-05-22 20:33] LABS: CARBON DIOXIDE 35 mEq/L (21-32); PHOSPHORUS 1.8 mg/dL (2.5-4.9)
[2017-05-22] MEDS: ATORVASTATIN CALCIUM 20MG TABLET GT SCH (21:12)
[2017-05-22 21:55] LABS: NUCLEATED RED BLOOD CELLS 1 /100 WBC
[2017-05-22 21:57] LABS: PLATELET ESTIMATE NORMAL
[2017-05-23] VITALS (116 sets, daily range): BP systolic 2–271; BP diastolic -5–198
[2017-05-23] MEDS: GUAIFENESIN-DM 200MG-20MG/10ML UDC GT SCH
[2017-05-23 00:56] LABS: HEMATOCRIT. 45.2 % (42.0-52.0); HEMOGLOBIN. 14.2 g/dL (14.0-18.0); MEAN CORPUSCULAR HEMOGLOBIN 27.3 pg (28.0-32.0); MEAN CORPUSCULAR VOLUME 86.7 fL (80.0-94.0); MEAN PLATELET VOLUME 9.3 fl (7.4-10.4); PLATELET 191 x1000/uL (130-400); RED BLOOD CELL COUNT 5.22 mill/uL (4.7-6.1); RED CELL DISTRIBUTION WIDTH 14.1 % (11.6-14.6)
[2017-05-23 01:01] LABS: INR 1.1; PARTIAL THROMBOPLASTIN TIME 29.6 sec (23.4-31.0); PROTHROMBIN TIME 11.4 sec (9.4-11.6)
[2017-05-23 01:09] LABS: CARBON DIOXIDE 35 mEq/L (21-32); CHLORIDE 96 mEq/L (98-107); PHOSPHORUS 2.2 mg/dL (2.5-4.9)
[2017-05-23] MEDS: ACETYLCYSTEINE 200MG/ML 20% VIAL 4ML INH SCH (02:05)
[2017-05-23] MEDS: ALBUTEROL (0.083%) 2.5MG/3ML NEB HHN SCH ×4 (02:05→20:20)
[2017-05-23] MEDS ORDERED: ATROPINE SULFATE 1MG/10ML SYR ONE (02:38)
[2017-05-23] MEDS ORDERED: AMIODARONE HCL 150 MG in DEXT 5% WATER 100 ML IV NR (03:00)
[2017-05-23] MEDS ORDERED: AMIODARONE HCL 900 MG in DEXT 5% WATER 482 ML IV PRN ×2 (03:00→04:00)
[2017-05-23] MEDS ORDERED: PHENYLEPHRINE 80 MG in DEXT 5% WATER 492 ML IV PRN (03:30)
[2017-05-23 03:39] LABS: BG BASE EXCESS -4.1 mmol/L (-2.0-2.0); BG CARBOXYHEMOGLOBIN 0.4 % (0.5-1.5); BG DEOXYHEMOGLOBIN 1.3 % (0.0-5.0); BG FRACTION INSPIRED OXYGEN 35; BG HCO3 ACT 24.8 mmol/L (22.0-26.0); BG METHEMOGLOBIN 0.3 % (0.0-1.5); BG OXYGEN SATURATION 98.7 % (92.0-98.5); BG PCO2 61.2 mmHg (35.0-45.0); BG PH 7.226 (7.350-7.450); BG PO2 156.4 mmHg (75.0-100.0); BG SAMPLE SITE A-LINE; BG TIDAL VOLUME(mL) 550 mL; BG TOTAL HEMOGLOBIN 15.8 g/dL (12.0-18.0); BG VENT MODE VENT - A/C; BG VENT RATE 16 set
[2017-05-23] MEDS ORDERED: WATER IV PRN (03:45)
[2017-05-23] MEDS ORDERED: DEXT 5% IV PRN (03:45)
[2017-05-23] MEDS ORDERED: PHENYLEPHRINE IV PRN (03:45)
[2017-05-23] MEDS: SODIUM CHLORIDE 0.9% 1,000 ML IV SCH ×3 (04:00→21:00)
[2017-05-23 04:27] LABS: HEMOGLOBIN. 14.7 g/dL (14.0-18.0); MEAN CORPUSCULAR HEMOGLOBIN 27.1 pg (28.0-32.0); MEAN CORPUSCULAR VOLUME 88.5 fL (80.0-94.0); MEAN PLATELET VOLUME 9.8 fl (7.4-10.4); PLATELET 203 x1000/uL (130-400); RED BLOOD CELL COUNT 5.42 mill/uL (4.7-6.1); RED CELL DISTRIBUTION WIDTH 14.6 % (11.6-14.6)
[2017-05-23 04:39] LABS: INR 1.2
[2017-05-23 04:45] LABS: PLATELET ESTIMATE NORMAL
[2017-05-23 04:51] LABS: CARBON DIOXIDE 29 mEq/L (21-32); CHLORIDE 92 mEq/L (98-107); PHOSPHORUS 5.4 mg/dL (2.5-4.9)
[2017-05-23] MEDS ORDERED: EPINEPHRINE 0.1MG/ML (1:10,000) 10ML SYR ONE (06:00)
[2017-05-23] MEDS: BLOOD SUGAR DIAGNOSTIC STRIP TEST SCH ×4 (06:00→18:31)
[2017-05-23] MEDS: INSULIN LISPRO 100 UNITS/ML SUBCUT SCH ×4 (06:00→18:00)
[2017-05-23] MEDS ORDERED: AMIODARONE HCL 50MG/ML 3ML VIAL IV ONE (06:00)
[2017-05-23] MEDS ORDERED: SODIUM BICARBONATE 7.5% 0.9 MEQ/ML 50ML SYR IV ONE (06:00)
[2017-05-23 08:17] LABS: HEMATOCRIT. 46.2 % (42.0-52.0); HEMOGLOBIN. 14.4 g/dL (14.0-18.0); MEAN CORPUSCULAR HEMOGLOBIN 27.2 pg (28.0-32.0); MEAN CORPUSCULAR VOLUME 87.2 fL (80.0-94.0); MEAN PLATELET VOLUME 9.7 fl (7.4-10.4); PLATELET 186 x1000/uL (130-400); RED CELL DISTRIBUTION WIDTH 14.3 % (11.6-14.6)
[2017-05-23] MEDS: LISINOPRIL 20MG TABLET PO SCH (09:00)
[2017-05-23] MEDS: ASPIRIN 81MG TABLET GT SCH ×2 (09:00→09:57)
[2017-05-23 09:02] LABS: INR 1.1; PARTIAL THROMBOPLASTIN TIME 28.8 sec (23.4-31.0); PROTHROMBIN TIME 11.6 sec (9.4-11.6)
[2017-05-23 09:04] LABS: CARBON DIOXIDE 31 mEq/L (21-32); CHLORIDE 95 mEq/L (98-107); PHOSPHORUS 3.8 mg/dL (2.5-4.9)
[2017-05-23] MEDS: FENTANYL CITRATE/PF 500 MCG in SODIUM CHLORIDE 0.9% 40 ML IV PRN (09:05)
[2017-05-23] MEDS: CEFEPIME 2,000 MG in DEXT 5% WATER 100 ML IV SCH ×2 (09:09→18:31)
[2017-05-23] MEDS: PANTOPRAZOLE SODIUM 40 MG/VIAL IV SCH (09:12)
[2017-05-23] MEDS ORDERED: SODIUM CHLORIDE 0.9% 500 ML IV ONE (09:15)
[2017-05-23 09:16] LABS: BG BASE EXCESS 4.3 mmol/L (-2.0-2.0); BG CARBOXYHEMOGLOBIN 0.9 % (0.5-1.5); BG DEOXYHEMOGLOBIN 3.1 % (0.0-5.0); BG FRACTION INSPIRED OXYGEN 35; BG HCO3 ACT 30.1 mmol/L (22.0-26.0); BG METHEMOGLOBIN 0.1 % (0.0-1.5); BG OXYGEN SATURATION 96.9 % (92.0-98.5); BG OXYHEMOGLOBIN 95.9 % (94.0-97.0); BG PCO2 49.4 mmHg (35.0-45.0); BG PH 7.403 (7.350-7.450); BG PO2 85.9 mmHg (75.0-100.0); BG SAMPLE SITE A-LINE; BG TIDAL VOLUME(mL) 550 mL; BG TOTAL HEMOGLOBIN 15.2 g/dL (12.0-18.0); BG VENT MODE VENT - A/C; BG VENT RATE 16 set
[2017-05-23] MEDS: BUDESONIDE 0.5MG/2ML NEB HHN SCH ×2 (09:16→20:21)
[2017-05-23] MEDS ORDERED: VASOPRESSIN 10 UNIT in SODIUM CHLORIDE 0.9% 99.5 ML IV PRN (09:30)
[2017-05-23] MEDS ORDERED: ALBUMIN HUMAN 12.5G/250ML (5%) IV NR (09:30)
[2017-05-23] MEDS ORDERED: PROPOFOL 10MG/ML 100ML 100 ML IV PRN (10:17)
[2017-05-23] MEDS: PHENYLEPHRINE 80 MG in DEXT 5% WATER 492 ML IV PRN ×3 (11:09→20:21)
[2017-05-23] MEDS: ALBUTEROL (0.083%) 2.5MG/3ML NEB HHN PRN (11:44)
[2017-05-23 12:04] LABS: INR 1.1; PROTHROMBIN TIME 11.7 sec (9.4-11.6)
[2017-05-23 12:09] LABS: MEAN CORPUSCULAR HEMOGLOBIN 28.1 pg (28.0-32.0); MEAN CORPUSCULAR VOLUME 86.6 fL (80.0-94.0); MEAN PLATELET VOLUME 9.6 fl (7.4-10.4); PLATELET 154 x1000/uL (130-400); RED BLOOD CELL COUNT 4.96 mill/uL (4.7-6.1); RED CELL DISTRIBUTION WIDTH 14.5 % (11.6-14.6)
[2017-05-23 12:59] LABS: CHLORIDE 96 mEq/L (98-107)
[2017-05-23 13:01] LABS: CREATINE KINASE MB FRACTION 5.4 ng/mL (0.5-3.6); TROPONIN I 0.29 ng/mL (0.00-0.04)
[2017-05-23] MEDS: NOREPINEPHRINE 32 MG in DEXT 5% WATER 468 ML IV PRN (13:16)
[2017-05-23 13:27] LABS: PLATELET ESTIMATE NORMAL
[2017-05-23 13:30] LABS: PLATELET ESTIMATE NORMAL
[2017-05-23 13:38] LABS: PLATELET ESTIMATE NORMAL
[2017-05-23] MEDS: MIDAZOLAM HCL 50 MG in DEXTROSE 5% WATER 40 ML IV PRN (14:04)
[2017-05-23 14:44] LABS: CARBON DIOXIDE 31 mEq/L (21-32); PHOSPHORUS 3.4 mg/dL (2.5-4.9)
[2017-05-23 16:03] LABS: CLARITY URINE CLOUDY (CLEAR); COLOR URINE YELLOW (YELLOW); KETONES URINE NEGATIVE (NEGATIVE); LEUKOCYTE ESTERASE URINE TRACE (NEGATIVE); NITRITE URINE NEGATIVE (NEGATIVE); OCCULT BLOOD URINE 2+ (NEGATIVE); PROTEIN URINE 1+ (NEGATIVE); SPECIFIC GRAVITY URINE 1.014 (1.005-1.030); UROBILINOGEN URINE 0.2 E.U./dL (0.2-1.0)
[2017-05-23 16:15] LABS: BG BASE EXCESS 3.8 mmol/L (-2.0-2.0); BG CARBOXYHEMOGLOBIN 0.5 % (0.5-1.5); BG DEOXYHEMOGLOBIN 0.9 % (0.0-5.0); BG FRACTION INSPIRED OXYGEN 35; BG METHEMOGLOBIN 0.5 % (0.0-1.5); BG OXYGEN SATURATION 99.1 % (92.0-98.5); BG OXYHEMOGLOBIN 98.1 % (94.0-97.0); BG PCO2 40.6 mmHg (35.0-45.0); BG PH 7.456 (7.350-7.450); BG PO2 150.8 mmHg (75.0-100.0); BG SAMPLE SITE A-LINE; BG TIDAL VOLUME(mL) 550 mL; BG TOTAL HEMOGLOBIN 14.3 g/dL (12.0-18.0); BG VENT MODE VENT - A/C; BG VENT RATE 16 set
[2017-05-23 17:05] LABS: HEMATOCRIT. 41.8 % (42.0-52.0); HEMOGLOBIN. 13.4 g/dL (14.0-18.0); MEAN CORPUSCULAR HEMOGLOBIN 27.7 pg (28.0-32.0); MEAN CORPUSCULAR VOLUME 86.5 fL (80.0-94.0); MEAN PLATELET VOLUME 9.6 fl (7.4-10.4); PLATELET 147 x1000/uL (130-400); RED BLOOD CELL COUNT 4.83 mill/uL (4.7-6.1); RED CELL DISTRIBUTION WIDTH 14.5 % (11.6-14.6)
[2017-05-23 17:07] LABS: INR 1.1; PARTIAL THROMBOPLASTIN TIME 31.7 sec (23.4-31.0); PROTHROMBIN TIME 11.9 sec (9.4-11.6)
[2017-05-23 17:17] LABS: CARBON DIOXIDE 34 mEq/L (21-32); CHLORIDE 94 mEq/L (98-107); PHOSPHORUS 3.3 mg/dL (2.5-4.9)
[2017-05-23 18:21] LABS: PLATELET ESTIMATE NORMAL
[2017-05-23] MEDS: ATORVASTATIN CALCIUM 20MG TABLET GT SCH (21:30)
[2017-05-24] VITALS (101 sets, daily range): BP systolic 75–173; BP diastolic 27–171
[2017-05-24] MEDS: BLOOD SUGAR DIAGNOSTIC STRIP TEST SCH ×4 (00:05→18:00)
[2017-05-24 00:08] LABS: HEMATOCRIT. 39.3 % (42.0-52.0); HEMOGLOBIN. 12.4 g/dL (14.0-18.0); MEAN CORPUSCULAR HEMOGLOBIN 27.3 pg (28.0-32.0); MEAN CORPUSCULAR VOLUME 86.3 fL (80.0-94.0); MEAN PLATELET VOLUME 9.6 fl (7.4-10.4); PLATELET 127 x1000/uL (130-400); RED BLOOD CELL COUNT 4.56 mill/uL (4.7-6.1); RED CELL DISTRIBUTION WIDTH 14.5 % (11.6-14.6)
[2017-05-24 00:19] LABS: INR 1.2; PARTIAL THROMBOPLASTIN TIME 34.6 sec (23.4-31.0); PROTHROMBIN TIME 12.2 sec (9.4-11.6)
[2017-05-24 00:26] LABS: CREATINE KINASE MB FRACTION 4.2 ng/mL (0.5-3.6); PHOSPHORUS 3.2 mg/dL (2.5-4.9); TROPONIN I 0.27 ng/mL (0.00-0.04)
[2017-05-24 01:06] LABS: PLATELET ESTIMATE SLIGHTLY DECREASED
[2017-05-24] MEDS: FENTANYL CITRATE/PF 500 MCG in SODIUM CHLORIDE 0.9% 40 ML IV PRN ×2 (01:52→08:02)
[2017-05-24] MEDS ORDERED: AMIODARONE HCL 900 MG in DEXT 5% WATER 482 ML IV PRN (02:00)
[2017-05-24] MEDS: PHENYLEPHRINE 80 MG in DEXT 5% WATER 492 ML IV PRN ×2 (04:17→12:21)
[2017-05-24] MEDS: INSULIN LISPRO 100 UNITS/ML SUBCUT SCH ×4 (05:33→18:00)
[2017-05-24] MEDS: MIDAZOLAM HCL 50 MG in DEXTROSE 5% WATER 40 ML IV PRN (05:33)
[2017-05-24] MEDS: CEFEPIME 2,000 MG in DEXT 5% WATER 100 ML IV SCH (05:35)
[2017-05-24] MEDS: GUAIFENESIN-DM 200MG-20MG/10ML UDC GT SCH ×3 (06:00→18:32)
[2017-05-24 07:07] LABS: INR 1.1; MEAN CORPUSCULAR HEMOGLOBIN 28.2 pg (28.0-32.0); MEAN CORPUSCULAR VOLUME 86.5 fL (80.0-94.0); MEAN PLATELET VOLUME 10.1 fl (7.4-10.4); PARTIAL THROMBOPLASTIN TIME 33.6 sec (23.4-31.0); PLATELET 113 x1000/uL (130-400); RED BLOOD CELL COUNT 4.27 mill/uL (4.7-6.1); RED CELL DISTRIBUTION WIDTH 14.3 % (11.6-14.6)
[2017-05-24 07:13] LABS: BG BASE EXCESS 3.9 mmol/L (-2.0-2.0); BG CARBOXYHEMOGLOBIN 0.3 % (0.5-1.5); BG DEOXYHEMOGLOBIN 2.9 % (0.0-5.0); BG METHEMOGLOBIN 0.5 % (0.0-1.5); BG OXYGEN SATURATION 97.1 % (92.0-98.5); BG OXYHEMOGLOBIN 96.3 % (94.0-97.0); BG PCO2 51.4 mmHg (35.0-45.0); BG PH 7.384 (7.350-7.450); BG PO2 89.7 mmHg (75.0-100.0); BG SAMPLE SITE A-LINE; BG TIDAL VOLUME(mL) 550 mL; BG VENT MODE VENT - A/C; BG VENT RATE 16 set
[2017-05-24] MEDS: PANTOPRAZOLE SODIUM 40 MG/VIAL IV SCH (08:02)
[2017-05-24] MEDS: ASPIRIN 81MG TABLET GT SCH (08:03)
[2017-05-24 09:16] LABS: CARBON DIOXIDE 27 mEq/L (21-32); CHLORIDE 95 mEq/L (98-107); CREATINE KINASE 66 IU/L (39-308); CREATINE KINASE MB FRACTION 3.3 ng/mL (0.5-3.6); PHOSPHORUS 3.4 mg/dL (2.5-4.9); TROPONIN I 0.22 ng/mL (0.00-0.04)
[2017-05-24] MEDS: BUDESONIDE 0.5MG/2ML NEB HHN SCH ×2 (09:16→20:19)
[2017-05-24] MEDS: ALBUTEROL (0.083%) 2.5MG/3ML NEB HHN SCH ×3 (09:17→20:19)
[2017-05-24] MEDS: PROPOFOL 10MG/ML 100ML 100 ML IV PRN (09:43)
[2017-05-24 12:18] LABS: HEMATOCRIT. 36.2 % (42.0-52.0); HEMOGLOBIN. 11.9 g/dL (14.0-18.0); MEAN CORPUSCULAR HEMOGLOBIN 28.2 pg (28.0-32.0); MEAN CORPUSCULAR VOLUME 85.9 fL (80.0-94.0); MEAN PLATELET VOLUME 9.7 fl (7.4-10.4); PLATELET 103 x1000/uL (130-400); RED BLOOD CELL COUNT 4.21 mill/uL (4.7-6.1); RED CELL DISTRIBUTION WIDTH 14.4 % (11.6-14.6)
[2017-05-24 12:26] LABS: INR 1.1; PARTIAL THROMBOPLASTIN TIME 35.5 sec (23.4-31.0); PROTHROMBIN TIME 11.8 sec (9.4-11.6)
[2017-05-24] MEDS: SODIUM CHLORIDE 0.9% 1,000 ML IV SCH ×2 (12:33→22:00)
[2017-05-24 12:42] LABS: CREATINE KINASE MB FRACTION 3.7 ng/mL (0.5-3.6); PHOSPHORUS 3.4 mg/dL (2.5-4.9); TROPONIN I 0.18 ng/mL (0.00-0.04)
[2017-05-24 12:58] LABS: PLATELET ESTIMATE DECREASED
[2017-05-24 13:01] LABS: PLATELET ESTIMATE DECREASED
[2017-05-24 16:44] LABS: BG BASE EXCESS 1.8 mmol/L (-2.0-2.0); BG CARBOXYHEMOGLOBIN 0.2 % (0.5-1.5); BG DEOXYHEMOGLOBIN 3.7 % (0.0-5.0); BG FRACTION INSPIRED OXYGEN 35; BG HCO3 ACT 27.2 mmol/L (22.0-26.0); BG METHEMOGLOBIN 0.4 % (0.0-1.5); BG OXYGEN SATURATION 96.3 % (92.0-98.5); BG OXYHEMOGLOBIN 95.7 % (94.0-97.0); BG PCO2 45.4 mmHg (35.0-45.0); BG PH 7.395 (7.350-7.450); BG PO2 82.5 mmHg (75.0-100.0); BG SAMPLE SITE LEFT BRACHIAL; BG TIDAL VOLUME(mL) 550 mL; BG TOTAL HEMOGLOBIN 12.8 g/dL (12.0-18.0); BG VENT MODE VENT - A/C; BG VENT RATE 16 set
[2017-05-24] MEDS ORDERED: PHENYLEPHRINE HCL 1% 15 ML NASAL SPRAY BOTHNSTRLS PRN (17:15)
[2017-05-24] MEDS ORDERED: OXYMETAZOLINE HCL NASAL SPRAY 15ML BOTHNSTRLS PRN (17:15)
[2017-05-24] MEDS: CEFEPIME 2,000 MG in DEXTROSE 5% WATER 50 ML IV SCH (18:20)
[2017-05-24 20:09] LABS: HEMATOCRIT. 38.4 % (42.0-52.0); HEMOGLOBIN. 12.5 g/dL (14.0-18.0); MEAN CORPUSCULAR HEMOGLOBIN 28.1 pg (28.0-32.0); MEAN PLATELET VOLUME 10.4 fl (7.4-10.4); PLATELET 83 x1000/uL (130-400); RED BLOOD CELL COUNT 4.46 mill/uL (4.7-6.1); RED CELL DISTRIBUTION WIDTH 14.5 % (11.6-14.6)
[2017-05-24 20:10] LABS: INR 1.1; PARTIAL THROMBOPLASTIN TIME 34.8 sec (23.4-31.0); PROTHROMBIN TIME 11.6 sec (9.4-11.6)
[2017-05-24 20:38] LABS: CREATINE KINASE MB FRACTION 3.7 ng/mL (0.5-3.6); PHOSPHORUS 3.5 mg/dL (2.5-4.9); TROPONIN I 0.14 ng/mL (0.00-0.04)
[2017-05-24] MEDS: ATORVASTATIN CALCIUM 20MG TABLET GT SCH (21:15)
[2017-05-24 21:39] LABS: PLATELET ESTIMATE MARKEDLY DECREASED
[2017-05-25] VITALS (98 sets, daily range): BP systolic 81–165; BP diastolic 39–97
[2017-05-25] MEDS: BLOOD SUGAR DIAGNOSTIC STRIP TEST SCH ×4 (00:24→17:43)
[2017-05-25 00:35] LABS: HEMOGLOBIN. 10.5 g/dL (14.0-18.0); MEAN CORPUSCULAR VOLUME 85.5 fL (80.0-94.0); PLATELET 68 x1000/uL (130-400); RED BLOOD CELL COUNT 3.74 mill/uL (4.7-6.1); RED CELL DISTRIBUTION WIDTH 14.8 % (11.6-14.6)
[2017-05-25] MEDS: GUAIFENESIN-DM 200MG-20MG/10ML UDC GT SCH ×4 (00:39→17:41)
[2017-05-25 00:53] LABS: PHOSPHORUS 3.9 mg/dL (2.5-4.9); TROPONIN I 0.12 ng/mL (0.00-0.04)
[2017-05-25 01:03] LABS: INR 1.2; PARTIAL THROMBOPLASTIN TIME 37.9 sec (23.4-31.0)
[2017-05-25] MEDS: ALBUTEROL (0.083%) 2.5MG/3ML NEB HHN SCH ×4 (02:01→20:45)
[2017-05-25] MEDS: CEFEPIME 2,000 MG in DEXTROSE 5% WATER 50 ML IV SCH ×2 (05:22→17:43)
[2017-05-25] MEDS: FENTANYL CITRATE/PF 500 MCG in SODIUM CHLORIDE 0.9% 40 ML IV PRN (05:24)
[2017-05-25] MEDS: PROPOFOL 10MG/ML 100ML 100 ML IV PRN ×2 (05:47→17:43)
[2017-05-25] MEDS: PHENYLEPHRINE 80 MG in DEXT 5% WATER 492 ML IV PRN (05:47)
[2017-05-25] MEDS: INSULIN LISPRO 100 UNITS/ML SUBCUT SCH ×4 (05:48→17:43)
[2017-05-25 07:19] LABS: INR 1.1; PARTIAL THROMBOPLASTIN TIME 36.6 sec (23.4-31.0); PROTHROMBIN TIME 11.7 sec (9.4-11.6)
[2017-05-25 07:27] LABS: HEMATOCRIT. 31.2 % (42.0-52.0); HEMOGLOBIN. 10.4 g/dL (14.0-18.0); MEAN CORPUSCULAR HEMOGLOBIN 28.5 pg (28.0-32.0); MEAN PLATELET VOLUME 10.1 fl (7.4-10.4); PLATELET 73 x1000/uL (130-400); RED BLOOD CELL COUNT 3.63 mill/uL (4.7-6.1); RED CELL DISTRIBUTION WIDTH 14.5 % (11.6-14.6)
[2017-05-25] MEDS: BUDESONIDE 0.5MG/2ML NEB HHN SCH (08:05)
[2017-05-25] MEDS: ASPIRIN 81MG TABLET GT SCH (08:22)
[2017-05-25] MEDS: PANTOPRAZOLE SODIUM 40 MG/VIAL IV SCH (08:22)
[2017-05-25 08:51] LABS: CREATINE KINASE MB FRACTION 2.7 ng/mL (0.5-3.6); TROPONIN I 0.09 ng/mL (0.00-0.04)
[2017-05-25 09:03] LABS: BG BASE EXCESS 1.7 mmol/L (-2.0-2.0); BG CARBOXYHEMOGLOBIN 0.3 % (0.5-1.5); BG DEOXYHEMOGLOBIN 0.8 % (0.0-5.0); BG FRACTION INSPIRED OXYGEN 35; BG HCO3 ACT 25.4 mmol/L (22.0-26.0); BG METHEMOGLOBIN 0.1 % (0.0-1.5); BG OXYGEN SATURATION 99.2 % (92.0-98.5); BG OXYHEMOGLOBIN 98.8 % (94.0-97.0); BG PCO2 36.3 mmHg (35.0-45.0); BG PH 7.462 (7.350-7.450); BG PO2 206.1 mmHg (75.0-100.0); BG SAMPLE SITE RIGHT RADIAL; BG TIDAL VOLUME(mL) 550 mL; BG TOTAL HEMOGLOBIN 11.3 g/dL (12.0-18.0); BG VENT MODE VENT - A/C; BG VENT RATE 10 set
[2017-05-25 09:29] LABS: PLATELET ESTIMATE DECREASED
[2017-05-25 13:12] LABS: PLATELET ESTIMATE DECREASED
[2017-05-25 15:11] LABS: MEAN CORPUSCULAR VOLUME 86.5 fL (80.0-94.0); MEAN PLATELET VOLUME 10.3 fl (7.4-10.4); PLATELET 96 x1000/uL (130-400); RED BLOOD CELL COUNT 3.93 mill/uL (4.7-6.1); RED CELL DISTRIBUTION WIDTH 14.6 % (11.6-14.6)
[2017-05-25 15:28] LABS: CREATINE KINASE MB FRACTION 2.5 ng/mL (0.5-3.6); PHOSPHORUS 3.7 mg/dL (2.5-4.9); TROPONIN I 0.08 ng/mL (0.00-0.04)
[2017-05-25 16:52] LABS: INR 1.1; PARTIAL THROMBOPLASTIN TIME 36.1 sec (23.4-31.0); PROTHROMBIN TIME 11.6 sec (9.4-11.6)
[2017-05-25 18:55] LABS: PLATELET ESTIMATE DECREASED
[2017-05-25 19:23] LABS: CLARITY URINE CLOUDY (CLEAR); COLOR URINE YELLOW (YELLOW); KETONES URINE NEGATIVE (NEGATIVE); LEUKOCYTE ESTERASE URINE NEGATIVE (NEGATIVE); NITRITE URINE NEGATIVE (NEGATIVE); OCCULT BLOOD URINE 1+ (NEGATIVE); PROTEIN URINE TRACE (NEGATIVE); UROBILINOGEN URINE 0.2 E.U./dL (0.2-1.0)
[2017-05-25] MEDS: ATORVASTATIN CALCIUM 20MG TABLET GT SCH (21:51)
[2017-05-25 23:22] LABS: INR 1.1; PARTIAL THROMBOPLASTIN TIME 34.2 sec (23.4-31.0); PROTHROMBIN TIME 11.4 sec (9.4-11.6)
[2017-05-25 23:24] LABS: HEMATOCRIT. 36.4 % (42.0-52.0); HEMOGLOBIN. 11.8 g/dL (14.0-18.0); MEAN PLATELET VOLUME 9.8 fl (7.4-10.4); PLATELET 91 x1000/uL (130-400); RED BLOOD CELL COUNT 4.23 mill/uL (4.7-6.1); RED CELL DISTRIBUTION WIDTH 14.6 % (11.6-14.6)
[2017-05-25 23:45] LABS: CREATINE KINASE MB FRACTION 3.6 ng/mL (0.5-3.6); PHOSPHORUS 4.3 mg/dL (2.5-4.9); TROPONIN I 0.07 ng/mL (0.00-0.04)
[2017-05-26] VITALS (35 sets, daily range): BP systolic 90–169; BP diastolic 63–109
[2017-05-26] MEDS: BLOOD SUGAR DIAGNOSTIC STRIP TEST SCH ×4 (00:17→18:00)
[2017-05-26] MEDS: ALBUTEROL (0.083%) 2.5MG/3ML NEB HHN SCH ×3 (03:54→20:11)
[2017-05-26 05:25] LABS: PLATELET ESTIMATE SLIGHTLY DECREASED
[2017-05-26 05:35] LABS: HEMATOCRIT. 37.3 % (42.0-52.0); HEMOGLOBIN. 12.2 g/dL (14.0-18.0); MEAN CORPUSCULAR HEMOGLOBIN 28.3 pg (28.0-32.0); MEAN CORPUSCULAR VOLUME 86.5 fL (80.0-94.0); PLATELET 87 x1000/uL (130-400); RED BLOOD CELL COUNT 4.32 mill/uL (4.7-6.1); RED CELL DISTRIBUTION WIDTH 14.5 % (11.6-14.6)
[2017-05-26] MEDS: INSULIN LISPRO 100 UNITS/ML SUBCUT SCH ×4 (06:00→18:00)
[2017-05-26 06:24] LABS: CARBON DIOXIDE 28 mEq/L (21-32); CHLORIDE 102 mEq/L (98-107)
[2017-05-26 06:27] LABS: PHOSPHORUS 4.5 mg/dL (2.5-4.9)
[2017-05-26] MEDS: GUAIFENESIN-DM 200MG-20MG/10ML UDC GT SCH ×3 (06:35→18:35)
[2017-05-26] MEDS: PROPOFOL 10MG/ML 100ML 100 ML IV PRN (06:35)
[2017-05-26] MEDS: CEFEPIME 2,000 MG in DEXTROSE 5% WATER 50 ML IV SCH ×2 (06:36→18:34)
[2017-05-26 07:21] LABS: PLATELET ESTIMATE DECREASED
[2017-05-26 09:16] LABS: BG BASE EXCESS -2.5 mmol/L (-2.0-2.0); BG CARBOXYHEMOGLOBIN 0.1 % (0.5-1.5); BG DEOXYHEMOGLOBIN 4.1 % (0.0-5.0); BG FRACTION INSPIRED OXYGEN 35; BG HCO3 ACT 24.1 mmol/L (22.0-26.0); BG METHEMOGLOBIN 0.4 % (0.0-1.5); BG OXYGEN SATURATION 95.9 % (92.0-98.5); BG OXYHEMOGLOBIN 95.4 % (94.0-97.0); BG PCO2 49.6 mmHg (35.0-45.0); BG PH 7.305 (7.350-7.450); BG PRESSURE SUPPORT 15; BG SAMPLE SITE RIGHT RADIAL; BG TIDAL VOLUME(mL) 550 mL; BG TOTAL HEMOGLOBIN 11.5 g/dL (12.0-18.0); BG VENT MODE VENT - SIMV; BG VENT RATE 10 set
[2017-05-26] MEDS: FENTANYL CITRATE/PF 500 MCG in SODIUM CHLORIDE 0.9% 40 ML IV PRN (09:36)
[2017-05-26] MEDS: PANTOPRAZOLE SODIUM 40 MG/VIAL IV SCH (09:43)
[2017-05-26] MEDS: DOCUSATE SODIUM SUGAR FREE 100MG/10ML UDC NG PRN ×2 (09:43→18:34)
[2017-05-26] MEDS: LACTULOSE 20G/30ML UDC PO SCH ×2 (09:43→22:22)
[2017-05-26] MEDS: ASPIRIN 81MG TABLET GT SCH (09:43)
[2017-05-26] MEDS: ALBUTEROL (0.083%) 2.5MG/3ML NEB HHN PRN (09:44)
[2017-05-26] MEDS: BISACODYL 10MG SUPP PR PRN (09:44)
[2017-05-26] MEDS: METOCLOPRAMIDE HCL 10MG/2ML VIAL IV SCH ×2 (09:44→18:34)
[2017-05-26] MEDS: GUAIFENESIN 200MG/10ML SUGAR FREE UDC GT PRN (13:24)
[2017-05-26] MEDS: ATORVASTATIN CALCIUM 20MG TABLET GT SCH (21:16)
[2017-05-27] VITALS (62 sets, daily range): BP systolic 111–176; BP diastolic 48–107
[2017-05-27] MEDS: ALBUTEROL (0.083%) 2.5MG/3ML NEB HHN SCH ×6 (00:09→20:23)
[2017-05-27] MEDS: GUAIFENESIN-DM 200MG-20MG/10ML UDC GT SCH ×4 (00:23→18:17)
[2017-05-27] MEDS: METOCLOPRAMIDE HCL 10MG/2ML VIAL IV SCH ×4 (00:23→18:17)
[2017-05-27 05:41] LABS: HEMATOCRIT. 32.5 % (42.0-52.0); HEMOGLOBIN. 10.7 g/dL (14.0-18.0); MEAN CORPUSCULAR HEMOGLOBIN 28.2 pg (28.0-32.0); MEAN PLATELET VOLUME 9.3 fl (7.4-10.4); PLATELET 91 x1000/uL (130-400); RED BLOOD CELL COUNT 3.78 mill/uL (4.7-6.1); RED CELL DISTRIBUTION WIDTH 14.4 % (11.6-14.6)
[2017-05-27] MEDS: LACTULOSE 20G/30ML UDC PO SCH ×3 (05:50→21:37)
[2017-05-27] MEDS: CEFEPIME 2,000 MG in DEXTROSE 5% WATER 50 ML IV SCH ×2 (05:51→18:18)
[2017-05-27] MEDS: BLOOD SUGAR DIAGNOSTIC STRIP TEST SCH ×4 (06:00→18:00)
[2017-05-27] MEDS: INSULIN LISPRO 100 UNITS/ML SUBCUT SCH ×4 (06:00→18:00)
[2017-05-27 06:16] LABS: PHOSPHORUS 3.8 mg/dL (2.5-4.9)
[2017-05-27] MEDS: FENTANYL CITRATE/PF 500 MCG in SODIUM CHLORIDE 0.9% 40 ML IV PRN ×2 (06:27→21:43)
[2017-05-27 08:31] LABS: PLATELET ESTIMATE DECREASED
[2017-05-27 08:50] LABS: BG BASE EXCESS 1.7 mmol/L (-2.0-2.0); BG CARBOXYHEMOGLOBIN 0.1 % (0.5-1.5); BG DEOXYHEMOGLOBIN 5.2 % (0.0-5.0); BG FRACTION INSPIRED OXYGEN 35; BG HCO3 ACT 29.4 mmol/L (22.0-26.0); BG METHEMOGLOBIN 0.2 % (0.0-1.5); BG OXYGEN SATURATION 94.8 % (92.0-98.5); BG OXYHEMOGLOBIN 94.5 % (94.0-97.0); BG PCO2 61.9 mmHg (35.0-45.0); BG PH 7.295 (7.350-7.450); BG PO2 74.6 mmHg (75.0-100.0); BG SAMPLE SITE RIGHT RADIAL; BG TIDAL VOLUME(mL) 550 mL; BG VENT MODE VENT - A/C; BG VENT RATE 10 set
[2017-05-27] MEDS: ASPIRIN 81MG TABLET GT SCH ×2 (09:00→13:12)
[2017-05-27] MEDS ORDERED: DILTIAZEM HCL 125 MG in DEXT 5% WATER 100 ML IV PRN (09:00)
[2017-05-27] MEDS: DILTIAZEM HCL 125 MG in SODIUM CHLORIDE 0.9% 100 ML IV PRN ×2 (09:03→19:35)
[2017-05-27] MEDS: PANTOPRAZOLE SODIUM 40 MG/VIAL IV SCH (09:27)
[2017-05-27] MEDS: BISACODYL 10MG SUPP PR PRN (09:27)
[2017-05-27] MEDS ORDERED: MORPHINE SULFATE 2 MG/ML CPJ (NOT FOR IM USE) IV NR (10:30)
[2017-05-27] MEDS: NITROGLYCERIN OINT 1GM/INCH UDPKT TD SCH ×3 (10:45→18:17)
[2017-05-27] MEDS ORDERED: HYDRALAZINE 20MG/ML VIAL IV PRN (14:15)
[2017-05-27] MEDS ORDERED: KCL 20MEQ/100ML PREMIX 100 ML IV ONE (14:30)
[2017-05-27] MEDS ORDERED: POTASSIUM CHLORIDE INJ 20 MEQ in SODIUM CHLORIDE 0.9% 100 ML IV NR (15:30)
[2017-05-27 16:24] LABS: BG BASE EXCESS -2.3 mmol/L (-2.0-2.0); BG CARBOXYHEMOGLOBIN 0.4 % (0.5-1.5); BG DEOXYHEMOGLOBIN 4.9 % (0.0-5.0); BG FRACTION INSPIRED OXYGEN 35; BG HCO3 ACT 24.7 mmol/L (22.0-26.0); BG METHEMOGLOBIN 0.4 % (0.0-1.5); BG OXYGEN SATURATION 95.1 % (92.0-98.5); BG OXYHEMOGLOBIN 94.3 % (94.0-97.0); BG PCO2 52.3 mmHg (35.0-45.0); BG PH 7.292 (7.350-7.450); BG PO2 78.6 mmHg (75.0-100.0); BG PRESSURE SUPPORT 8; BG SAMPLE SITE RIGHT RADIAL; BG TOTAL HEMOGLOBIN 11.5 g/dL (12.0-18.0); BG VENT MODE VENT - CPAP
[2017-05-27] MEDS: BUDESONIDE 0.5MG/2ML NEB HHN SCH ×2 (16:32→20:23)
[2017-05-27] MEDS: DOCUSATE SODIUM SUGAR FREE 100MG/10ML UDC NG PRN (18:17)
[2017-05-27] MEDS: ATORVASTATIN CALCIUM 20MG TABLET GT SCH (21:37)
[2017-05-27] MEDS: TRAZODONE HCL 50MG TABLET PO PRN (21:38)
[2017-05-28] VITALS (84 sets, daily range): BP systolic 94–169; BP diastolic 50–128
[2017-05-28] MEDS: NITROGLYCERIN OINT 1GM/INCH UDPKT TD SCH ×4 (00:01→17:49)
[2017-05-28] MEDS: ALBUTEROL (0.083%) 2.5MG/3ML NEB HHN SCH ×7 (00:18→23:52)
[2017-05-28] MEDS ORDERED: DIGOXIN 500MCG/2ML AMP IV SCH (01:30)
[2017-05-28] MEDS: BLOOD SUGAR DIAGNOSTIC STRIP TEST SCH ×4 (06:00→18:00)
[2017-05-28] MEDS: INSULIN LISPRO 100 UNITS/ML SUBCUT SCH ×4 (06:00→18:00)
[2017-05-28] MEDS: CEFEPIME 2,000 MG in DEXTROSE 5% WATER 50 ML IV SCH ×2 (06:31→17:50)
[2017-05-28] MEDS: METOCLOPRAMIDE HCL 10MG/2ML VIAL IV SCH ×4 (06:32→17:49)
[2017-05-28] MEDS: GUAIFENESIN-DM 200MG-20MG/10ML UDC GT SCH ×4 (06:32→17:49)
[2017-05-28] MEDS: LACTULOSE 20G/30ML UDC PO SCH (06:32)
[2017-05-28 07:15] LABS: HEMATOCRIT. 34.5 % (42.0-52.0); HEMOGLOBIN. 11.3 g/dL (14.0-18.0); MEAN CORPUSCULAR HEMOGLOBIN 28.3 pg (28.0-32.0); MEAN CORPUSCULAR VOLUME 86.6 fL (80.0-94.0); MEAN PLATELET VOLUME 9.3 fl (7.4-10.4); PLATELET 113 x1000/uL (130-400); RED BLOOD CELL COUNT 3.98 mill/uL (4.7-6.1); RED CELL DISTRIBUTION WIDTH 14.5 % (11.6-14.6)
[2017-05-28] MEDS: PANTOPRAZOLE SODIUM 40 MG/VIAL IV SCH (08:12)
[2017-05-28] MEDS: ASPIRIN 81MG TABLET GT SCH (08:12)
[2017-05-28 08:24] LABS: PHOSPHORUS 3.9 mg/dL (2.5-4.9)
[2017-05-28] MEDS: BUDESONIDE 0.5MG/2ML NEB HHN SCH ×2 (08:40→23:52)
[2017-05-28] MEDS: DILTIAZEM HCL 125 MG in SODIUM CHLORIDE 0.9% 100 ML IV PRN ×3 (08:43→22:27)
[2017-05-28] MEDS: SODIUM CHLORIDE 0.9% 1,000 ML IV SCH (09:01)
[2017-05-28 09:47] LABS: BG BASE EXCESS -1.6 mmol/L (-2.0-2.0); BG DEOXYHEMOGLOBIN 4.3 % (0.0-5.0); BG FRACTION INSPIRED OXYGEN 35; BG HCO3 ACT 27.1 mmol/L (22.0-26.0); BG METHEMOGLOBIN 0.2 % (0.0-1.5); BG OXYGEN SATURATION 95.7 % (92.0-98.5); BG OXYHEMOGLOBIN 95.5 % (94.0-97.0); BG PCO2 66.9 mmHg (35.0-45.0); BG PH 7.225 (7.350-7.450); BG PO2 84.9 mmHg (75.0-100.0); BG PRESSURE SUPPORT 8; BG SAMPLE SITE RIGHT BRACHIAL; BG TOTAL HEMOGLOBIN 11.3 g/dL (12.0-18.0); BG VENT MODE VENT - CPAP
[2017-05-28 10:47] LABS: PLATELET ESTIMATE SLIGHTLY DECREASED
[2017-05-28] MEDS: FENTANYL CITRATE/PF 500 MCG in SODIUM CHLORIDE 0.9% 40 ML IV PRN (16:57)
[2017-05-28] MEDS: DOCUSATE SODIUM SUGAR FREE 100MG/10ML UDC NG PRN (17:49)
[2017-05-28] MEDS: ATORVASTATIN CALCIUM 20MG TABLET GT SCH (22:05)
[2017-05-29] VITALS (83 sets, daily range): BP systolic 82–188; BP diastolic 50–123
[2017-05-29] MEDS: METOCLOPRAMIDE HCL 10MG/2ML VIAL IV SCH ×4 (00:50→17:45)
[2017-05-29] MEDS: GUAIFENESIN-DM 200MG-20MG/10ML UDC GT SCH ×4 (00:51→17:45)
[2017-05-29] MEDS: NITROGLYCERIN OINT 1GM/INCH UDPKT TD SCH ×4 (00:51→17:45)
[2017-05-29] MEDS: ALBUTEROL (0.083%) 2.5MG/3ML NEB HHN SCH ×5 (04:29→20:30)
[2017-05-29] MEDS: SODIUM CHLORIDE 0.9% 1,000 ML IV SCH ×3 (05:00→17:46)
[2017-05-29 05:54] LABS: HEMATOCRIT. 32.8 % (42.0-52.0); HEMOGLOBIN. 10.8 g/dL (14.0-18.0); MEAN CORPUSCULAR HEMOGLOBIN 28.5 pg (28.0-32.0); MEAN CORPUSCULAR VOLUME 86.2 fL (80.0-94.0); PLATELET 116 x1000/uL (130-400); RED CELL DISTRIBUTION WIDTH 14.4 % (11.6-14.6)
[2017-05-29] MEDS: INSULIN LISPRO 100 UNITS/ML SUBCUT SCH ×5 (06:00→23:30)
[2017-05-29] MEDS: BLOOD SUGAR DIAGNOSTIC STRIP TEST SCH ×5 (06:14→23:30)
[2017-05-29] MEDS: FENTANYL CITRATE/PF 500 MCG in SODIUM CHLORIDE 0.9% 40 ML IV PRN ×2 (06:14→14:13)
[2017-05-29 06:33] LABS: PHOSPHORUS 3.8 mg/dL (2.5-4.9)
[2017-05-29] MEDS: ASPIRIN 81MG TABLET GT SCH (08:07)
[2017-05-29] MEDS: PANTOPRAZOLE SODIUM 40 MG/VIAL IV SCH (08:08)
[2017-05-29 08:29] LABS: BG BASE EXCESS 0.1 mmol/L (-2.0-2.0); BG DEOXYHEMOGLOBIN 8.5 % (0.0-5.0); BG FRACTION INSPIRED OXYGEN 35; BG HCO3 ACT 29.4 mmol/L (22.0-26.0); BG METHEMOGLOBIN 0.7 % (0.0-1.5); BG OXYGEN SATURATION 91.4 % (92.0-98.5); BG OXYHEMOGLOBIN 89.8 % (94.0-97.0); BG PCO2 74.8 mmHg (35.0-45.0); BG PH 7.213 (7.350-7.450); BG PO2 61.9 mmHg (75.0-100.0); BG PRESSURE SUPPORT 8; BG SAMPLE SITE RIGHT RADIAL; BG TOTAL HEMOGLOBIN 11.4 g/dL (12.0-18.0); BG VENT MODE VENT - CPAP
[2017-05-29] MEDS ORDERED: SODIUM CHLORIDE 0.9% 1000ML BAG (SEPSIS BOLUS) IV SCH (08:45)
[2017-05-29] MEDS: ACETAZOLAMIDE 250MG TABLET PO SCH ×2 (09:43→17:45)
[2017-05-29 09:53] LABS: CLARITY URINE CLOUDY (CLEAR); COLOR URINE YELLOW (YELLOW); KETONES URINE TRACE (NEGATIVE); LEUKOCYTE ESTERASE URINE NEGATIVE (NEGATIVE); NITRITE URINE NEGATIVE (NEGATIVE); OCCULT BLOOD URINE 3+ (NEGATIVE); PROTEIN URINE 2+ (NEGATIVE); SPECIFIC GRAVITY URINE 1.018 (1.005-1.030); UROBILINOGEN URINE 0.2 E.U./dL (0.2-1.0)
[2017-05-29] MEDS: BUDESONIDE 0.5MG/2ML NEB HHN SCH ×2 (10:02→20:30)
[2017-05-29] MEDS: DILTIAZEM HCL 125 MG in SODIUM CHLORIDE 0.9% 100 ML IV PRN ×2 (11:32→20:00)
[2017-05-29 12:19] LABS: BG CARBOXYHEMOGLOBIN 0.5 % (0.5-1.5); BG DEOXYHEMOGLOBIN 5.3 % (0.0-5.0); BG FRACTION INSPIRED OXYGEN 35; BG HCO3 ACT 27.9 mmol/L (22.0-26.0); BG METHEMOGLOBIN 0.4 % (0.0-1.5); BG OXYGEN SATURATION 94.7 % (92.0-98.5); BG OXYHEMOGLOBIN 93.8 % (94.0-97.0); BG PCO2 70.1 mmHg (35.0-45.0); BG PH 7.218 (7.350-7.450); BG PO2 74.2 mmHg (75.0-100.0); BG PRESSURE SUPPORT 10; BG SAMPLE SITE RIGHT RADIAL; BG TIDAL VOLUME(mL) 550 mL; BG TOTAL HEMOGLOBIN 10.9 g/dL (12.0-18.0); BG VENT MODE VENT - SIMV; BG VENT RATE 8 set
[2017-05-29] MEDS: DOCUSATE SODIUM SUGAR FREE 100MG/10ML UDC NG PRN (13:12)
[2017-05-29 18:38] LABS: PLATELET ESTIMATE SLIGHTLY DECREASED
[2017-05-29] MEDS: ATORVASTATIN CALCIUM 20MG TABLET GT SCH (22:18)
[2017-05-30] VITALS (86 sets, daily range): BP systolic 82–170; BP diastolic 50–123
[2017-05-30] MEDS: ALBUTEROL (0.083%) 2.5MG/3ML NEB HHN SCH ×6 (00:02→20:30)
[2017-05-30] MEDS: ACETAZOLAMIDE 250MG TABLET PO SCH ×4 (00:27→18:25)
[2017-05-30] MEDS: GUAIFENESIN-DM 200MG-20MG/10ML UDC GT SCH ×4 (00:27→18:25)
[2017-05-30] MEDS: NITROGLYCERIN OINT 1GM/INCH UDPKT TD SCH ×4 (00:27→18:24)
[2017-05-30] MEDS: METOCLOPRAMIDE HCL 10MG/2ML VIAL IV SCH ×4 (00:27→18:25)
[2017-05-30] MEDS: TRAZODONE HCL 50MG TABLET PO PRN (01:00)
[2017-05-30 05:57] LABS: BASOPHILS % 0.1 % (0.0-2.0); EOSINOPHILS % 0.3 % (0.0-5.0); HEMATOCRIT. 34.4 % (42.0-52.0); HEMOGLOBIN. 10.9 g/dL (14.0-18.0); LYMPHOCYTES % 1.7 % (20.0-50.0); MEAN CORPUSCULAR HEMOGLOBIN 28.3 pg (28.0-32.0); MEAN PLATELET VOLUME 9.2 fl (7.4-10.4); MONOCYTES % 10.7 % (2.0-8.0); NEUTROPHILS % 87.2 % (40.0-76.0); PLATELET 143 x1000/uL (130-400); RED BLOOD CELL COUNT 3.86 mill/uL (4.7-6.1)
[2017-05-30] MEDS: INSULIN LISPRO 100 UNITS/ML SUBCUT SCH ×3 (06:00→18:46)
[2017-05-30] MEDS: BLOOD SUGAR DIAGNOSTIC STRIP TEST SCH ×3 (06:00→18:46)
[2017-05-30 06:06] LABS: PHOSPHORUS 4.1 mg/dL (2.5-4.9)
[2017-05-30 07:36] LABS: BG BASE EXCESS -1.9 mmol/L (-2.0-2.0); BG CARBOXYHEMOGLOBIN 0.9 % (0.5-1.5); BG DEOXYHEMOGLOBIN 4.8 % (0.0-5.0); BG HCO3 ACT 27.8 mmol/L (22.0-26.0); BG METHEMOGLOBIN 0.5 % (0.0-1.5); BG OXYGEN SATURATION 95.1 % (92.0-98.5); BG OXYHEMOGLOBIN 93.8 % (94.0-97.0); BG PCO2 75.9 mmHg (35.0-45.0); BG PH 7.182 (7.350-7.450); BG PO2 77.8 mmHg (75.0-100.0); BG SAMPLE SITE RIGHT RADIAL; BG TIDAL VOLUME(mL) 550 mL; BG TOTAL HEMOGLOBIN 11.5 g/dL (12.0-18.0); BG VENT MODE VENT - A/C; BG VENT RATE 12 set
[2017-05-30] MEDS: SODIUM CHLORIDE 0.9% 1,000 ML IV SCH ×2 (08:44→19:14)
[2017-05-30] MEDS: PREDNISONE 20MG TABLET PO SCH (09:10)
[2017-05-30] MEDS: ASPIRIN 81MG TABLET GT SCH (09:10)
[2017-05-30] MEDS: FAMOTIDINE 20MG/2ML VIAL IV SCH (09:10)
[2017-05-30] MEDS: BUDESONIDE 0.5MG/2ML NEB HHN SCH (09:28)
[2017-05-30] MEDS: ENOXAPARIN 30MG/0.3ML SYR SUBCUT SCH ×2 (11:46→22:34)
[2017-05-30] MEDS: GUAIFENESIN 200MG/10ML SUGAR FREE UDC GT PRN (11:47)
[2017-05-30] MEDS: FENTANYL CITRATE/PF 500 MCG in SODIUM CHLORIDE 0.9% 40 ML IV PRN ×2 (12:07→19:11)
[2017-05-30 12:23] LABS: BG BASE EXCESS -5.4 mmol/L (-2.0-2.0); BG CARBOXYHEMOGLOBIN 0.2 % (0.5-1.5); BG DEOXYHEMOGLOBIN 1.9 % (0.0-5.0); BG FRACTION INSPIRED OXYGEN 35; BG HCO3 ACT 22.1 mmol/L (22.0-26.0); BG METHEMOGLOBIN 0.5 % (0.0-1.5); BG OXYGEN SATURATION 98.1 % (92.0-98.5); BG OXYHEMOGLOBIN 97.4 % (94.0-97.0); BG PCO2 53.1 mmHg (35.0-45.0); BG PH 7.238 (7.350-7.450); BG SAMPLE SITE RIGHT RADIAL; BG TIDAL VOLUME(mL) 550 mL; BG TOTAL HEMOGLOBIN 10.9 g/dL (12.0-18.0); BG VENT MODE VENT - A/C; BG VENT RATE 16 set
[2017-05-30] MEDS: DILTIAZEM HCL 30MG TABLET PO SCH (18:25)
[2017-05-30] MEDS: ATORVASTATIN CALCIUM 20MG TABLET GT SCH (22:30)
[2017-05-31] VITALS (90 sets, daily range): BP systolic 82–149; BP diastolic 47–81
[2017-05-31] MEDS: DILTIAZEM HCL 30MG TABLET PO SCH ×6 (00:17→23:34)
[2017-05-31] MEDS: GUAIFENESIN-DM 200MG-20MG/10ML UDC GT SCH ×5 (00:17→23:31)
[2017-05-31] MEDS: METOCLOPRAMIDE HCL 10MG/2ML VIAL IV SCH ×5 (00:17→23:31)
[2017-05-31] MEDS: ACETAZOLAMIDE 250MG TABLET PO SCH ×2 (00:17→06:08)
[2017-05-31] MEDS: NITROGLYCERIN OINT 1GM/INCH UDPKT TD SCH ×5 (00:17→23:35)
[2017-05-31] MEDS: ALBUTEROL (0.083%) 2.5MG/3ML NEB HHN SCH ×7 (00:22→23:51)
[2017-05-31] MEDS: BUDESONIDE 0.5MG/2ML NEB HHN SCH ×3 (00:23→19:51)
[2017-05-31] MEDS: INSULIN LISPRO 100 UNITS/ML SUBCUT SCH ×5 (01:21→23:35)
[2017-05-31 05:32] LABS: HEMATOCRIT. 31.2 % (42.0-52.0); HEMOGLOBIN. 9.7 g/dL (14.0-18.0); MEAN CORPUSCULAR HEMOGLOBIN 27.7 pg (28.0-32.0); MEAN CORPUSCULAR VOLUME 88.7 fL (80.0-94.0); MEAN PLATELET VOLUME 9.7 fl (7.4-10.4); PLATELET 136 x1000/uL (130-400); RED BLOOD CELL COUNT 3.52 mill/uL (4.7-6.1); RED CELL DISTRIBUTION WIDTH 14.6 % (11.6-14.6)
[2017-05-31] MEDS: BLOOD SUGAR DIAGNOSTIC STRIP TEST SCH ×5 (06:00→23:31)
[2017-05-31 06:18] LABS: PHOSPHORUS 3.5 mg/dL (2.5-4.9)
[2017-05-31 07:33] LABS: PLATELET ESTIMATE NORMAL
[2017-05-31 08:24] LABS: BG CARBOXYHEMOGLOBIN 0.3 % (0.5-1.5); BG DEOXYHEMOGLOBIN 2.5 % (0.0-5.0); BG FRACTION INSPIRED OXYGEN 35; BG HCO3 ACT 26.8 mmol/L (22.0-26.0); BG METHEMOGLOBIN 0.6 % (0.0-1.5); BG OXYGEN SATURATION 97.5 % (92.0-98.5); BG OXYHEMOGLOBIN 96.6 % (94.0-97.0); BG PCO2 67.8 mmHg (35.0-45.0); BG PH 7.214 (7.350-7.450); BG PO2 103.5 mmHg (75.0-100.0); BG SAMPLE SITE RIGHT RADIAL; BG TIDAL VOLUME(mL) 550 mL; BG TOTAL HEMOGLOBIN 10.9 g/dL (12.0-18.0); BG VENT MODE VENT - A/C; BG VENT RATE 16 set
[2017-05-31] MEDS: FAMOTIDINE 20MG/2ML VIAL IV SCH (08:48)
[2017-05-31] MEDS: PREDNISONE 20MG TABLET PO SCH (08:48)
[2017-05-31] MEDS: ENOXAPARIN 30MG/0.3ML SYR SUBCUT SCH ×2 (08:48→20:49)
[2017-05-31] MEDS: ASPIRIN 81MG TABLET GT SCH (08:48)
[2017-05-31 12:06] LABS: BG BASE EXCESS -5.7 mmol/L (-2.0-2.0); BG CARBOXYHEMOGLOBIN 0.1 % (0.5-1.5); BG DEOXYHEMOGLOBIN 1.8 % (0.0-5.0); BG FRACTION INSPIRED OXYGEN 35; BG HCO3 ACT 21.5 mmol/L (22.0-26.0); BG METHEMOGLOBIN 0.3 % (0.0-1.5); BG OXYGEN SATURATION 98.2 % (92.0-98.5); BG OXYHEMOGLOBIN 97.8 % (94.0-97.0); BG PCO2 49.8 mmHg (35.0-45.0); BG PH 7.253 (7.350-7.450); BG PO2 117.3 mmHg (75.0-100.0); BG SAMPLE SITE RIGHT RADIAL; BG TIDAL VOLUME(mL) 550 mL; BG TOTAL HEMOGLOBIN 10.8 g/dL (12.0-18.0); BG VENT MODE VENT - A/C; BG VENT RATE 20 set
[2017-05-31] MEDS: ATORVASTATIN CALCIUM 20MG TABLET GT SCH (20:49)
[2017-06-01] VITALS (22 sets, daily range): BP systolic 86–142; BP diastolic 42–93
[2017-06-01] MEDS: ALBUTEROL (0.083%) 2.5MG/3ML NEB HHN SCH (03:58)
[2017-06-01] MEDS ORDERED: LIDOCAINE HCL 2% 5ML SYRINGE IV ONE (06:00)
[2017-06-01] MEDS ORDERED: EPINEPHRINE 0.1MG/ML (1:10,000) 10ML SYR ONE (06:00)
[2017-06-01] MEDS: INSULIN LISPRO 100 UNITS/ML SUBCUT SCH (06:00)
[2017-06-01] MEDS ORDERED: AMIODARONE HCL 50MG/ML 3ML VIAL IV ONE (06:00)
[2017-06-01 06:02] LABS: HEMATOCRIT. 32.5 % (42.0-52.0); HEMOGLOBIN. 10.2 g/dL (14.0-18.0); MEAN CORPUSCULAR HEMOGLOBIN 27.5 pg (28.0-32.0); MEAN CORPUSCULAR VOLUME 87.9 fL (80.0-94.0); MEAN PLATELET VOLUME 9.6 fl (7.4-10.4); PLATELET 164 x1000/uL (130-400); RED CELL DISTRIBUTION WIDTH 15.4 % (11.6-14.6)
[2017-06-01] MEDS: BLOOD SUGAR DIAGNOSTIC STRIP TEST SCH (06:09)
[2017-06-01 08:19] LABS: PHOSPHORUS 3.3 mg/dL (2.5-4.9)
[2017-06-01 08:23] LABS: PLATELET ESTIMATE NORMAL
== END 2017-06-01 06:37 | disposition expired | DRG 870 ==
LOC: ER 22:28 → SUPCPDRO 23:02 → 5EST 05-17 01:26 → EDBEDREQ 05-17 01:28 → ENRESERV 05-17 03:46 → CVICU 05-21 08:38
PROVIDERS: ADMIT Internal Medicine; ATTEND Internal Medicine
PROC: 5A09357 Assistance with Respiratory Ventilation, Less than 24 Consecutive Hours, Continuous Positive Airway Pressure (ICD-10-PCS; 2017-05-17)
PROC: 5A1955Z Respiratory Ventilation, Greater than 96 Consecutive Hours (ICD-10-PCS; principal; 2017-05-21)
PROC: 04HY32Z Insertion of Monitoring Device into Lower Artery, Percutaneous Approach (ICD-10-PCS; 2017-05-21)
PROC: B548ZZA Ultrasonography of Superior Vena Cava, Guidance (ICD-10-PCS; 2017-05-21)
PROC: 02HV33Z Insertion of Infusion Device into Superior Vena Cava, Percutaneous Approach (ICD-10-PCS; 2017-05-21)
PROC: 0BH17EZ Insertion of Endotracheal Airway into Trachea, Via Natural or Artificial Opening (ICD-10-PCS; 2017-05-21)
PROC: 5A09357 Assistance with Respiratory Ventilation, Less than 24 Consecutive Hours, Continuous Positive Airway Pressure (ICD-10-PCS; 2017-05-21)
PROC: 5A12012 Performance of Cardiac Output, Single, Manual (ICD-10-PCS; 2017-05-23)
PROC: 5A2204Z Restoration of Cardiac Rhythm, Single (ICD-10-PCS; 2017-05-23)
DX: A40.3 Sepsis due to Streptococcus pneumoniae (principal); I21.4 Non-ST elevation (NSTEMI) myocardial infarction; J96.22 Acute and chronic respiratory failure with hypercapnia; I46.9 Cardiac arrest, cause unspecified; E43 Unspecified severe protein-calorie malnutrition; N17.0 Acute kidney failure with tubular necrosis; J18.9 Pneumonia, unspecified organism; D69.6 Thrombocytopenia, unspecified; E83.39 Other disorders of phosphorus metabolism; R65.21 Severe sepsis with septic shock; J44.0 Chronic obstructive pulmonary disease with (acute) lower respiratory infection; J44.1 Chronic obstructive pulmonary disease with (acute) exacerbation; E87.2 Acidosis; I48.92 Unspecified atrial flutter; I50.32 Chronic diastolic (congestive) heart failure; N39.0 Urinary tract infection, site not specified; I11.0 Hypertensive heart disease with heart failure; E87.6 Hypokalemia; B19.20 Unspecified viral hepatitis C without hepatic coma; D63.8 Anemia in other chronic diseases classified elsewhere; E05.90 Thyrotoxicosis, unspecified without thyrotoxic crisis or storm; E66.9 Obesity, unspecified; E78.5 Hyperlipidemia, unspecified; E87.5 Hyperkalemia; F12.90 Cannabis use, unspecified, uncomplicated; F17.210 Nicotine dependence, cigarettes, uncomplicated; I25.10 Atherosclerotic heart disease of native coronary artery without angina pectoris; I48.0 Paroxysmal atrial fibrillation; I49.01 Ventricular fibrillation; R73.9 Hyperglycemia, unspecified; R58 Hemorrhage, not elsewhere classified; T45.515A Adverse effect of anticoagulants, initial encounter; J20.9 Acute bronchitis, unspecified; K59.00 Constipation, unspecified; Z88.8 Allergy status to other drugs, medicaments and biological substances; Z99.81 Dependence on supplemental oxygen; Z79.82 Long term (current) use of aspirin; Z79.899 Other long term (current) drug therapy; Y92.89 Other specified places as the place of occurrence of the external cause; Z68.29 Body mass index [BMI] 29.0-29.9, adult
CPT/HCPCS: 36415; 36569; 36600; 70450; 71010; 74000; 76770; 76937; 80048; 80053; 80061; 80162; 80202; 80305; 81001; 82150; 82330; 82375; 82533; 82550; 82553; 82805; 82962; 83036; 83605; 83690; 83735; 83880; 84100; 84439; 84443; 84478; 84481; 84484; 85025; 85362; 85379; 85610; 85730; 87040; 87070; 87077; 87086; 87107; 87186; 92950; 93005; 93306; 93308; 94002; 94003; 94640; 94644; 94660; 94664; 94667; 96361; 96365; 96367; 96375; 97162; 97164; 99285; A6261; C1725; C9113; G0482; J0171; J0282; J0461; J0692; J0696; J1160; J1200; J1265; J1650; J1815; J1956; J2175; J2250; J2270; J2370; J2405; J2704; J2765; J2920; J2930; J3010; J3370; J3475; J3480; J3490; J7030; J7040; J7050; J7060; J7131; J7512; J7608; J7611; J7620; J7626; P9041; P9047; A4315